=== PATIENT | male | born 1955 | race Caucasian/White ===

== ENCOUNTER 2019-04-14 13:22 | Inpatient (IN) ==
[~2019-04-14 13:22] MED LIST: AMIODARONE 360MG / 200ML D5W IV ONE; RAPID SEQUENCE INDUCTION BAG ONE
[2019-04-14] MEDS ORDERED: SODIUM CHLORIDE 0.9% 500 ML IV SCH (13:30)
[2019-04-14] MEDS ORDERED: AMIODARONE / D5W 360 MG/200 ML BAG IV SCH ×2 (13:30→17:08)
[2019-04-14 13:46] LABS: Basophils # (auto) 0.04 K/uL (0-0.2); Basophils % (auto) 0.4 %; Eosinophils # (auto) 0.11 K/uL (0-0.5); Hematocrit (blood only) 44.6 % (42-52); Hemoglobin 15.5 g/dL (14.0-18.0); Immature Granulocytes # (auto) 0.18 K/uL (0.00-0.02); Immature Granulocytes % (auto) 1.6 %; Lymphocytes # (auto) 2.47 K/uL (1.2-3.4); Lymphocytes % (auto) 21.8 %; Mean Corpuscular Hemoglobin 30.6 pg (25-34); Mean Corpuscular Hgb Conc 34.8 g/dL (32-36); Mean Platelet Volume 10.2 fL (7.4-10.4); Monocytes # (auto) 0.72 K/uL (0.11-0.59); Monocytes % (auto) 6.4 %; Neutrophils # (auto) 7.81 K/uL (1.4-6.5); Neutrophils % (auto) 68.8 %; Platelet Count 193 K/uL (130-400); RDW Coefficient of Variation 13.7 % (11.5-14.5); RDW Standard Deviation 44.2 fL (36.4-46.3); Red Blood Count 5.07 M/uL (4.7-6.1); White Blood Count 11.33 K/uL (4.8-10.8)
--- NOTE | 2019-04-14 13:48 | Emergency Department Note ---
Entered by Eva Avila acting as a scribe for Levon Villarreal DO History of Present Illness General Chief complaint: Cardiac Arrest/CPR Source: patient History of Present Illness Provider complaint: Cardiac Arrest Onset (ago): hour(s) 1 Location: chest Radiation: non-radiation Relieved By: + none Associated symptoms: + chest pain The patient is a 63 year old male who presents to the Emergency Room with complaints of cardiac arrest that began about 1 hour ago. EMS states the patient collapsed at the [facility] and was found face down. According to EMS the patient w as given 8 minutes of CPR and shocked 4 times by an AED. The patient told EMS that he is experiencing chest pain that does not radiate anywhere else on his body and is not relieved by anything specific. Home Medications Home Medications Medication Instructions Recorded Confirmed Type No Known Home Medications 04/14/19 04/14/19 History Allergies Allergy/AdvReac Type Severity Reaction Status Date / Time penicillin V Allergy Unknown Unverified 04/14/19 14:22 Past Med/Surg History Medical History No pertinent past medical history Family History Other No pertinent family history in first degree relatives Social History Preferred Language: Portuguese Feels Safe at Home: Yes Smoking Status: Former smoker Review of Systems See HPI for pertinent positives & negatives. and A total of 10 systems reviewed and were otherwise negative Physical Exam Vital Signs Vital Signs - 24 hr 04/14/19 13:26 04/14/19 13:27 04/14/19 13:30 Sepsis Recent Fever Within 48 Hours No Sepsis Action Taken by Nursing No Action Required Oxygen Flow Rate - Titration Pulse Rate 105 H 105 H 102 H Pulse Rate from SpO2 Sensor 98 H 101 H Pulse Rhythm Regular Pulse Strength Normal Respiratory Rate 30 H Respiratory Effort / Characteristics Non-Labored Respiratory Depth Normal Respiratory Pattern Regular Blood Pressure 146/94 H 146/94 H Blood Pressure Mean 111 111 Blood Pressure Position Lying Pulse Oximetry 94 94 95 Oxygen Delivery Method Non-rebreather Oxygen Flow Rate 10 Fraction of Inspired Oxygen 04/14/19 13:35 04/14/19 13:40 04/14/19 13:45 Sepsis Recent Fever Within 48 Hours Sepsis Action Taken by Nursing Oxygen Flow Rate - Titration Pulse Rate 104 H 102 H 102 H Pulse Rate from SpO2 Sensor 104 H 104 H Pulse Rhythm Pulse Strength Respiratory Rate Respiratory Effort / Characteristics Respiratory Depth Respiratory Pattern Blood Pressure Blood Pressure Mean Blood Pressure Position Pulse Oximetry 96 94 Oxygen Delivery Method Oxygen Flow Rate Fraction of Inspired Oxygen 04/14/19 14:14 04/14/19 14:15 04/14/19 14:20 Sepsis Recent Fever Within 48 Hours Sepsis Action Taken by Nursing Oxygen Flow Rate - Titration Pulse Rate 95 H 95 H 98 H Pulse Rate from SpO2 Sensor 98 H Pulse Rhythm Pulse Strength Respiratory Rate Respiratory Effort / Characteristics Respiratory Depth Respiratory Pattern Blood Pressure Blood Pressure Mean Blood Pressure Position Pulse Oximetry 92 Oxygen Delivery Method Oxygen Flow Rate Fraction of Inspired Oxygen 04/14/19 14:25 04/14/19 14:29 Sepsis Recent Fever Within 48 Hours Sepsis Action Taken by Nursing Oxygen Flow Rate - Titration 4 Pulse Rate 98 H Pulse Rate from SpO2 Sensor 98 H Pulse Rhythm Pulse Strength Respiratory Rate Respiratory Effort / Characteristics Respiratory Depth Respiratory Pattern Blood Pressure Blood Pressure Mean Blood Pressure Position Pulse Oximetry 92 Oxygen Delivery Method Nasal Cannula Oxygen Flow Rate 2 Fraction of Inspired Oxygen 92 CONSTITUTIONAL/VITAL SIGNS: Reviewed / noted above. GENERAL: Non-toxic in appearance. INTEGUMENTARY: Warm, dry, and Bruce. HEAD: Normocephalic. EYES: without scleral icterus or trauma. ENT/OROPHARYNX: Blood in bilateral nares. Mild swelling in anterior face. LYMPHADENOPATHY/NECK: Is supple without lymphadenopathy or meningismus. RESPIRATORY: Lungs clear and equal. CARDIOVASCULAR: Regular rate and rhythm. CHEST: Redness on anterior chest wall from CPR. GI/ABDOMEN: Soft and nontender. No organomegaly or pulsatile mass. No rebound or guarding. Normal bowel sounds. EXTREMITIES: Warm and well perfused. BACK: No CVA tenderness. NEUROLOGICAL: Intact without focal deficits. PSYCHIATRIC: normal affect. MUSCULOSKELETAL: Normally developed with good muscle tone. Course 1322: Past medical records reviewed. The patient was evaluated in room B01. A complete history and physical exam was performed. 1511: I spoke with Dr. Gorman- Hospitalist about the patient's case and he will accept the patient for further evaluation. Administered Medications Amiodarone HCl/Dextrose (Nexterone / D5w) 360 mg in 200 mls @ 33.333 mls/hr IV .Q6H MAITE Stop: 04/14/19 19:29 Last Admin: 04/14/19 13:35 Dose: 1 mg/min, 33.3 mls/hr Documented by: [id number] Cosigned by: [id number] Ioversol (Optiray 320 125ml) 119 ml IV ONCE PRN PRN Reason: Interaction Checking Stop: 04/18/19 14:15 Last Admin: 04/14/19 14:16 Dose: 119 ml Documented by: [id number] Discontinued Medications Sodium Chloride (Nss) 500 mls @ 999 mls/hr IV .Q31M MAITE Stop: 04/14/19 14:00 Last Infusion: 04/14/19 14:27 Dose: 0 mls/hr Documented by: [id number] Admin: 04/14/19 13:35 Dose: 999 mls/hr Documented by: [id number] Medical Decision Making Differential Diagnosis Differential diagnosis: Etiologies such as cardiac ischemia, cardiac tamponade, dysrhythmia, aortic dissection, pulmonary embolism, trauma, tension pneumothorax, acute respiratory failure, electrolyte abnormality, acidosis, toxic ingestion, hypothermia, hypovolemia, intracranial event, as well as others were entertained.. Medical Records Attestation: I reviewed the patient's medical records. Home Medications Current Medication List: was personally reviewed by me Laboratory Data Attestation: I reviewed the patient's lab results. Result diagrams: 04/14/19 13:35 04/14/19 13:35 Lab Results 04/14/19 04/14/19 04/14/19 Range/Units 13:35 13:35 13:35 WBC 11.33 H (4.8-10.8) K/uL RBC 5.07 (4.7-6.1) M/uL Hgb 15.5 (14.0-18.0) g/dL POC Hgb (14.0-18.0) g/dl Hct 44.6 (42-52) % POC Hct (42-52) % MCV 88.0 (80-100) fL MCH 30.6 (25-34) pg MCHC 34.8 (32-36) g/dL RDW Std Deviation 44.2 (36.4-46.3) fL RDW Coeff of Valentina 13.7 (11.5-14.5) % Plt Count 193 (130-400) K/uL MPV 10.2 (7.4-10.4) fL Immature Gran % (Auto) 1.6 % Neut % (Auto) 68.8 % Lymph % (Auto) 21.8 % [place] % (Auto) 6.4 % Eos % (Auto) 1.0 % Baso % (Auto) 0.4 % Immature Gran # (Auto) 0.18 H (0.00-0.02) K/uL Neut # (Auto) 7.81 H (1.4-6.5) K/uL Lymph # (Auto) 2.47 (1.2-3.4) K/uL [place] # (Auto) 0.72 H (0.11-0.59) K/uL Eos # (Auto) 0.11 (0-0.5) K/uL Baso # (Auto) 0.04 (0-0.2) K/uL PT 10.6 (9.0-12.0) Seconds INR 1.0 (0.9-1.1) APTT 23.9 (21.0-31.0) Seconds PTT Ratio 0.9 POC Sodium (135-144) mEq/L Sodium 138 (136-145) mmol/L POC Potassium (3.3-5.0) mEq/L Potassium 3.5 (3.5-5.1) mmol/L POC Chloride (101-112) mEq/L Chloride 106 (98-107) mmol/L Carbon Dioxide 20 L (21-32) mmol/L POC Total CO2 (24-31) mEq/l Anion Gap 12.0 H (3-11) POC Anion Gap (16-25) mmol/L POC BUN (7-18) mg/dl BUN 9 (7-18) mg/dl Creatinine 1.14 (0.6-1.4) mg/dl POC Creatinine (0.6-1.3) mg/dl Est Cr Clr Drug Dosing 76.9 ml/min Est GFR ( Amer) 78.9 Est GFR (Non-Af Amer) 68.1 BUN/Creatinine Ratio 8.0 L (10-20) Glucose 149 H (70-99) mg/dl POC Glucose (other) (70-99) mg/dl Lactate (0.4-2.0) mmol/L Calcium 9.0 (8.5-10.1) mg/dl POC Ioniz Calcium Linda (1.12-1.32) mmol/l Total Bilirubin 0.4 (0.2-1) mg/dl AST 126 H (15-37) U/L ALT 137 H (12-78) U/L Alkaline Phosphatase 62 (45-117) U/L Total Creatine Kinase 308 (39-308) U/L CK-MB (CK-2) 6.0 H (0.5-3.6) ng/ml CK/CKMB % Calc 1.9 (0-3.0) POC Troponin I (0-0.045) ng/ml Troponin I 0.166 H* (0-0.045) ng/ml Total Protein 6.6 (6.4-8.2) gm/dl Albumin 3.4 (3.4-5.0) gm/dl Globulin 3.2 (2.5-4.0) gm/dl Albumin/Globulin Ratio 1.1 (0.9-2) Lipase 201 (73-393) U/L Specimen Hemolysis 04/14/19 04/14/19 04/14/19 Range/Units 13:35 13:37 13:40 WBC (4.8-10.8) K/uL RBC (4.7-6.1) M/uL Hgb (14.0-18.0) g/dL POC Hgb 15.3 (14.0-18.0) g/dl Hct (42-52) % POC Hct 45 (42-52) % MCV (80-100) fL MCH (25-34) pg MCHC (32-36) g/dL RDW Std Deviation (36.4-46.3) fL RDW Coeff of Valentina (11.5-14.5) % Plt Count (130-400) K/uL MPV (7.4-10.4) fL Immature Gran % (Auto) % Neut % (Auto) % Lymph % (Auto) % [place] % (Auto) % Eos % (Auto) % Baso % (Auto) % Immature Gran # (Auto) (0.00-0.02) K/uL Neut # (Auto) (1.4-6.5) K/uL Lymph # (Auto) (1.2-3.4) K/uL [place] # (Auto) (0.11-0.59) K/uL Eos # (Auto) (0-0.5) K/uL Baso # (Auto) (0-0.2) K/uL PT (9.0-12.0) Seconds INR (0.9-1.1) APTT (21.0-31.0) Seconds PTT Ratio POC Sodium 138 (135-144) mEq/L Sodium (136-145) mmol/L POC Potassium 3.6 (3.3-5.0) mEq/L Potassium (3.5-5.1) mmol/L POC Chloride 103 (101-112) mEq/L Chloride (98-107) mmol/L Carbon Dioxide (21-32) mmol/L POC Total CO2 23 L (24-31) mEq/l Anion Gap (3-11) POC Anion Gap 16.0 (16-25) mmol/L POC BUN 8 (7-18) mg/dl BUN (7-18) mg/dl Creatinine (0.6-1.4) mg/dl POC Creatinine 1.0 (0.6-1.3) mg/dl Est Cr Clr Drug Dosing ml/min Est GFR ( Amer) Est GFR (Non-Af Amer) BUN/Creatinine Ratio (10-20) Glucose (70-99) mg/dl POC Glucose (other) 151 H (70-99) mg/dl Lactate 4.4 H* (0.4-2.0) mmol/L Calcium (8.5-10.1) mg/dl POC Ioniz Calcium Linda 1.19 (1.12-1.32) mmol/l Total Bilirubin (0.2-1) mg/dl AST (15-37) U/L ALT (12-78) U/L Alkaline Phosphatase (45-117) U/L Total Creatine Kinase (39-308) U/L CK-MB (CK-2) (0.5-3.6) ng/ml CK/CKMB % Calc (0-3.0) POC Troponin I 0.09 H (0-0.045) ng/ml Troponin I (0-0.045) ng/ml Total Protein (6.4-8.2) gm/dl Albumin (3.4-5.0) gm/dl Globulin (2.5-4.0) gm/dl Albumin/Globulin Ratio (0.9-2) Lipase (73-393) U/L Specimen Hemolysis Imaging Data Radiologist's Impression: Radiology results as stated below per my review and the radiologist's interpretation: XR chest 1V portable HISTORY: Atypical Chest Pain COMPARISON: Chest CTA 04/14/2019. FINDINGS: Diffuse interstitial and vascular thickening with a right perihilar airspace opacity. This likely represents moderate asymmetric pulmonary edema. The heart is enlarged. Suspect a trace left pleural effusion. No pneumothorax. Bilateral anterior rib fractures are better appreciated on the same day chest CT. IMPRESSION: 1. Cardiomegaly with moderate asymmetric pulmonary edema. 2. Bilateral anterior rib fractures are better appreciated on the same day chest CT. No pneumothorax. Electronically signed by: Valentín Olivares M.D. 04/14/2019 2:54 PM CHEST CTA for PULMONARY ARTERIES CT DOSE: 583.72 mGycm HISTORY: Fall. Status post cardiac arrest. TECHNIQUE: Multiaxial CT images of the chest were performed following the intravenous administration of contrast to evaluate the pulmonary arteries. Maximal intensity projection images were also obtained. A dose lowering technique was utilized adhering to the principles of ALARA. COMPARISON STUDY: None. FINDINGS: Normal caliber thoracic aorta with no evidence for dissection. The heart is normal in size. No pericardial effusion. Trace left pleural effusion. Mild motion artifact within the segmental and subsegmental pulmonary arteries resulting in suboptimal evaluation. However, no definite filling defects to suggest pulmonary embolus. The visualized liver, spleen, and adrenal glands are unremarkable. No mediastinal or hilar lymphadenopathy. Normal esophagus. No pneumothorax. The central airways are patent. Right greater than left interlobular septal thickening. There are also patchy airspace opacities within the right upper lobe posteriorly and bilateral lower lobes posteriorly. This is nonspecific but favors moderate asymmetric pulmonary edema. A superimposed pneumonia cannot be excluded. Multiple nondisplaced bilateral anterior rib fractures. This is likely due to resuscitation efforts. IMPRESSION: 1. No evidence for pulmonary embolus. 2. Moderate asymmetric pulmonary edema. A superimposed pneumonia cannot be excluded but is considered less likely. 3. Trace left pleural effusion. 4. Nondisplaced bilateral anterior rib fractures likely secondary to resuscitation efforts. No pneumothorax. Electronically signed by: Valentín Olivares M.D. 04/14/2019 2:[address] DOSE: 494.89 mGycm HISTORY: trauma TECHNIQUE: Multiaxial CT images of the cervical spine were performed and reformatted in the sagittal and coronal plane without the use of contrast. A dose lowering technique was utilized adhering to the principles of ALARA. COMPARISON: None. FINDINGS: No fractures. No subluxation. Prevertebral soft tissues and the C1-C2 interval are intact. No pneumothorax. Straightening of the cervical spine. Mild disc space narrowing within the lower cervical spine. Patchy airspace opacities and interlobular septal thickening within the lung apices favors pulmonary edema. IMPRESSION: No fractures within the cervical spine. Abnormality within the lung apices favors pulmonary edema. Electronically signed by: Valentín Olivares M.D. 04/14/2019 2:[address] head/brain wo con CLINICAL HISTORY: Head pain status post trauma. Cardiac arrest. COMPARISON STUDY: No previous studies for comparison. TECHNIQUE: Axial CT of the brain is performed from the vertex to the skull b ase. IV contrast was not administered for this examination. A dose lowering technique was utilized adhering to the principles of ALARA. CT DOSE: 1553.72 mGycm FINDINGS: No intra or extra-axial mass lesions are visualized. There is no CT evidence of acute cortical infarction. There is no evidence of midline shift. There is no acute hemorrhage. No calvarial fractures are visualized. Increased density at the level of the pontomedullary junction as visualized on image #8, likely is secondary to artifact. No corresponding abnormality is visualized on the CT the cervical spine performed the same day There are patchy minor matter hypodensities likely on a small vessel basis. There is no evidence of pathologic ventricular dilatation. There is no evidence of acute sinusitis IMPRESSION: 1. No evidence of acute intracranial injury. Electronically signed by: Davon Sow M.D. 04/14/2019 2:[address] facial bones wo con CLINICAL HISTORY: 63 years-old Male presenting with trauma. TECHNIQUE: Multidetector CT of the face was performed without the use of intravenous contrast. IV contrast: None. One or more dose lowering techniques were used consistent with the principles of ALARA (as low as reasonably achievable), including automatic exposure control, mA or kV adjustment to individual patient size, and/or use of iterative reconstruction. COMPARISON: None. CT DOSE (mGy.cm): The estimated cumulative dose is 1066.28 mGycm. FINDINGS: Biophysics Teacher topogram: Unremarkable. Motion artifact mildly degrades image quality is mildly limiting diagnostic sensitivity the exam. Layering fluid in the left sphenoid sinus. Fluid in the right mastoid air cells and minimally on the left. The skull base is intact. Zygomatic processes intact. Temporal mandibular joints and mandible intact. Dental caries suggested. The teeth are otherwise intact. Chronic deviation of the bony nasal septum to the right. Nasal bones are grossly intact. Upper cervical spine intact. Superficial soft tissues of the face do not demonstrate focal infiltration or soft tissue swelling. Age-related parenchymal atrophy of the brain. Orbits intact. Orbital floors intact. IMPRESSION: No acute osseous injury of the face. Electronically signed by: Akash Medina M.D. 04/14/2019 2:29 PM ECG Data Attestation: I personally reviewed and interpreted this ECG as follows: Indication: other (Cardiac Arrest) Rate (beats per minute): 105 Rhythm: sinus tachycardia Findings: + ST depression (Inferior); no PAC, no PVC and no ST elevation Blood Pressure Blood Pressure Findings: Elevated blood pressure Blood Pressure Disposition: further management by hospitalist COURTNEY Dominguez This is a 63-year-old male prisoner who presents to the ED with a chief complaint of cardiac arrest. The patient, per EMS had an episode of cardiac arrest. He was found down in his cell. He was facedown on the floor. The patient had CPR performed by staff at the [facility]. AED was applied and shocked him 4 times prior to EMS arrival. Upon EMS arrival, the patient was awake and had a pulse he was talking. The patient was transported here by EMS. He was given oxygen. He was also given 150 mg of IV amiodarone. The patient complains of some chest discomfort possibly related to the CPR that took place. His chest wall is red. The patient also has some bleeding in the facial area and dried blood in the nares. He states that he feels a little congested. The patient has no other complaints. His exam reveals no neuro deficits. Other than the chest wall injury from CPR and the facial injury from his likely fall, there is no other findings to suggest other trauma. His initial twelve-lead EKG shows a sinus tach at a rate of [address] depressions and T wave inversions in the inferior leads. No ST elevations or ectopy. A CT scan of the head, face and cervical spine were negative for acute trauma. CT scan of the chest did not show PE. There was evidence of asymmetric pulmonary edema. The patient was noted to have bilateral nondisplaced anterior rib fractures likely related to CPR. A second EKG was performed and reveals nonspecific ST changes in the inferior leads otherwise a normal sinus rhythm without concerning changes. AST and ALT were mildly elevated. Lactic acid level was 4.4. Troponin was 0.166. Lipase was negative. The patient was given IV amiodarone by EMS 150 mg bolus. He was also given amiodarone drip here. The patient was given IV Lasix 40 mg and 2 g of IV magnesium. I spoke with Dr. Anthony the hospitalist. I also spoke with the communications representative. The patient will be admitted to the hospital. Impression & Plan Cardiac arrest, Contusion of face, Fracture, ribs, Pulmonary edema Critical Care Time Critical Care Time: Yes Total Critical Care Time: 55 I have personally spent 55 minutes of critical care time in the direct manage ment of this patient. This includes bedside care, interpretation of diagnostic studies, and testing, discussion with consultants, patient, and family members, and other required patient management activities. This 55 minutes is in excess of all separately billable procedures. The scribe's documentation has been prepared under my direction and personally reviewed by me in its entirety. I confirm that the note above accurately reflects all work, treatment, procedures, and medical decision making performed by me.
[2019-04-14 13:52] LABS: iSTAT Hemoglobin 15.3 g/dl (14.0-18.0); iSTAT Ionized Calcium 1.19 mmol/l (1.12-1.32); iSTAT Potassium 3.6 mEq/L (3.3-5.0)
[2019-04-14 14:01] LABS: Partial Thromboplastin Ratio 0.9; Partial Thromboplastin Time 23.9 Seconds (21.0-31.0); Prothrombin Time 10.6 Seconds (9.0-12.0)
[2019-04-14 14:16] LABS: Albumin Globulin Ratio 1.1 (0.9-2); Albumin Level 3.4 gm/dl (3.4-5.0); Bilirubin,Total 0.4 mg/dl (0.2-1); Creatinine Clr Calc Pharmacy 76.9 ml/min; Est GFR (African American) 78.9; Est GFR (Non-African American) 68.1; Globulin 3.2 gm/dl (2.5-4.0); Potassium 3.5 mmol/L (3.5-5.1); Total Protein 6.6 gm/dl (6.4-8.2); Troponin I 0.166 ng/ml (0-0.045)
[2019-04-14] MEDS ORDERED: OPTIRAY 320 125ml IV PRN (14:16)
--- NOTE | 2019-04-14 14:26 | CT Scan Report ---
CT head/brain wo con CLINICAL HISTORY: Head pain status post trauma. Cardiac arrest. COMPARISON STUDY: No previous studies for comparison. TECHNIQUE: Axial CT of the brain is performed from the vertex to the skull base. IV contrast was not administered for this examination. A dose lowering technique was utilized adhering to the principles of ALARA. CT DOSE: 1553.72 mGycm FINDINGS: No intra or extra-axial mass lesions are visualized. There is no CT evidence of acute cortical infarc tion. There is no evidence of midline shift. There is no acute hemorrhage. No calvarial fractures ar e visualized. Increased density at the level of the pontomedullary junction as visualized on image #8 , likely is secondary to artifact. No corresponding abnormality is visualized on the CT the cervical spine performed the same day There are patchy minor matter hypodensities likely on a small vessel basis. There is no evidence of pathologic ventricular dilatation. There is no evidence of acute sinusitis IMPRESSION: 1. No evidence of acute intracranial injury. Electronically signed by: Davon Sow M.D. 04/14/2019 2:24 PM
--- NOTE | 2019-04-14 14:29 | CT Scan Report ---
CERVICAL SPINE CT CT DOSE: 494.89 mGycm HISTORY: trauma TECHNIQUE: Multiaxial CT images of the cervical spine were performed and reformatted in the sagittal and coronal plane without the use of contrast. A dose lowering technique was utilized adhering to th e principles of ALARA. COMPARISON: None. FINDINGS: No fractures. No subluxation. Prevertebral soft tissues and the C1-C2 interval are intact. No pneumothorax. Straightening of the cervical spine. Mild disc space narrowing within the lower cerv ical spine. Patchy airspace opacities and interlobular septal thickening within the lung apices favor s pulmonary edema. IMPRESSION: No fractures within the cervical spine. Abnormality within the lung apices favors pulmonary edema. Electronically signed by: Valentín Olivares M.D. 04/14/2019 2:28 PM
--- NOTE | 2019-04-14 14:31 | CT Scan Report ---
CT facial bones wo con CLINICAL HISTORY: 63 years-old Male presenting with trauma. TECHNIQUE: Multidetector CT of the face was performed without the use of intravenous contrast. IV con trast: None. One or more dose lowering techniques were used consistent with the principles of ALARA ( as low as reasonably achievable), including automatic exposure control, mA or kV adjustment to indivi dual patient size, and/or use of iterative reconstruction. COMPARISON: None. CT DOSE (mGy.cm): The estimated cumulative dose is 1066.28 mGycm. FINDINGS: Manager Gallery topogram: Unremarkable. Motion artifact mildly degrades image quality is mildly limiting diagnostic sensitivity the exam. Lay ering fluid in the left sphenoid sinus. Fluid in the right mastoid air cells and minimally on the lef t. The skull base is intact. Zygomatic processes intact. Temporal mandibular joints and mandible inta ct. Dental caries suggested. The teeth are otherwise intact. Chronic deviation of the bony nasal sept um to the right. Nasal bones are grossly intact. Upper cervical spine intact. Superficial soft tissue s of the face do not demonstrate focal infiltration or soft tissue swelling. Age-related parenchymal atrophy of the brain. Orbits intact. Orbital floors intact. IMPRESSION: No acute osseous injury of the face. Electronically signed by: Akash Medina M.D. 04/14/2019 2:29 PM
--- NOTE | 2019-04-14 14:43 | CT Scan Report ---
CHEST CTA for PULMONARY ARTERIES CT DOSE: 583.72 mGycm HISTORY: Fall. Status post cardiac arrest. TECHNIQUE: Multiaxial CT images of the chest were performed following the intravenous administration of contrast to evaluate the pulmonary arteries. Maximal intensity projection images were also obtaine d. A dose lowering technique was utilized adhering to the principles of ALARA. COMPARISON STUDY: None. FINDINGS: Normal caliber thoracic aorta with no evidence for dissection. The heart is normal in size. No pericardial effusion. Trace left pleural effusion. Mild motion artifact within the segmental and subsegmental pulmonary arteries resulting in suboptimal evaluation. However, no definite filling defe cts to suggest pulmonary embolus. The visualized liver, spleen, and adrenal glands are unremarkable. No mediastinal or hilar lymphadenopathy. Normal esophagus. No pneumothorax. The central airways are p atent. Right greater than left interlobular septal thickening. There are also patchy airspace opaciti es within the right upper lobe posteriorly and bilateral lower lobes posteriorly. This is nonspecific but favors moderate asymmetric pulmonary edema. A superimposed pneumonia cannot be excluded. Multipl e nondisplaced bilateral anterior rib fractures. This is likely due to resuscitation efforts. IMPRESSION: 1. No evidence for pulmonary embolus. 2. Moderate asymmetric pulmonary edema. A superimposed pneumonia cannot be excluded but is considered less likely. 3. Trace left pleural effusion. 4. Nondisplaced bilateral anterior rib fractures likely secondary to resuscitation efforts. No pneumo thorax. Electronically signed by: Valentín Olivares M.D. 04/14/2019 2:42 PM
[2019-04-14] MEDS ORDERED: FUROSEMIDE 40 MG/4 ML VIAL IV STA (14:45)
--- NOTE | 2019-04-14 14:56 | XRay Report ---
XR chest 1V portable HISTORY: Atypical Chest Pain COMPARISON: Chest CTA 04/14/2019. FINDINGS: Diffuse interstitial and vascular thickening with a right perihilar airspace opacity. This likely represents moderate asymmetric pulmonary edema. The heart is enlarged. Suspect a trace left pl eural effusion. No pneumothorax. Bilateral anterior rib fractures are better appreciated on the same day chest CT. IMPRESSION: 1. Cardiomegaly with moderate asymmetric pulmonary edema. 2. Bilateral anterior rib fractures are better appreciated on the same day chest CT. No pneumothorax. Electronically signed by: Valentín Olivares M.D. 04/14/2019 2:54 PM
[2019-04-14] MEDS: MAGNESIUM SULFATE / D5W 1 GM/100 ML BAG IV SCH ×2 (15:38→17:43)
[2019-04-14] MEDS ORDERED: POTASSIUM CHLORIDE 20 MEQ TABCR PO STA (15:42)
[2019-04-14 15:50] LABS: Magnesium 2.1 mg/dl (1.8-2.4)
[2019-04-14 15:55] LABS: Potassium 3.7 mmol/L (3.5-5.1)
--- NOTE | 2019-04-14 16:06 | Critical Care Consultation ---
Date of Consultation April 14, 2019 Assessment & Plan (1) Cardiac arrest: --Status post cardiac arrest Patient had to be shocked 4 times by ED along with CPR. Patient was alert and talking by the time EMS reached the spot. Likely represent arrhythmia. Patient's QTC is prolonged at 510. Patient was given bolus amiodarone 150 mg followed by amiodarone drip in the ER. We will continue with amiodarone drip for 24 hours. Troponin mildly elevated. We will start the patient on ACS protocol. Cardiology will be consulted. Keep potassium level greater than 4, magnesium greater than 2, phosphorus greater than 3. Monitor for any arrhythmias. Follow-up 2D echo. Serial EKGs. -- HAGMA Delta-delta: Less than 1 Likely sec to metabolic acidosis secondary lactic acidosis, non-anion gap metabo lic acidosis will order urine lites. Monitor --Bilateral upper lobe infiltrate more on the right side Differential includes aspiration with pulmonary edema given the patient had cardiac arrest Follow-up septic work-up, give 1 dose of antibiotics Monitor --Morbid obesity with probable ADAN Needs outpatient sleep study No CPAP given the patient has facial trauma --DVT prophylaxis: Heparin (2) Fracture, ribs: Pain management. Present on Admission?: Yes (3) Contusion of face: Present on Admission?: Yes History of Present Illness Reason for Consultation: Status post cardiac arrest. History of Present Illness 63-year-old male with no significant past medical history is brought in from shelter as patient had cardiac arrest while he was pushing a cart. Patient was given CPR and was shocked 4 times by AED. By the time EMS reached the p atient patient was awake and alert and talking. At the time of examination patient was awake and alert only complaint he had was chest pain which was reproducible on palpation. Patient does not recall anything prior to the episode of cardiac arrest. Patient denies any chest palpitation, no dizziness, no diaphoresis, no headache, no nausea, no vomiting. Patient denied any fever or chills. Patient denies any dysuria or hematuria or hematochezia. Patient denies taking anything unusual prior to the episode. Social history: Greater than [id number] smoking history, not smoking recently since he is incarcerated, social alcohol, denies any use of any illicit drugs Allergies Allergy/AdvReac Type Severity Reaction Status Date / Time penicillin V Allergy Unknown Unverified 04/14/19 14:22 Home Medications Home Medications Medication Instructions Recorded Confirmed Type No Known Home Medications 04/14/19 04/14/19 History Patient History Medical History No pertinent past medical history Family History Other No pertinent family history in first degree relatives Social History Preferred Language: Belarusian Communication Ability: Effective Beliefs That Will Affect Care: None Current Living Situation: Other Feels Safe at Home: Yes Smoking Status: Unknown if ever smoked Hx Alcohol Use: No Hx Substance Use: No Review of Systems Review of Systems: All systems reviewed & are unremarkable except as noted in HPI & below Physical Exam Physical Exam: Constitutional: Mild distress secondary to reproducible chest pain HEENT: EOMI, PERRLA, anicteric, bruising around the nose appreciated. Dried blood appreciated around the mouth. Respiratory system: Decreased air entry bilaterally, no wheeze, no rhonchi, no crackles CVS: S1-S2 positive, no murmurs or gallops Abdomen: Soft, nontender, nondistended, positive bowel sounds x4, obese Extremities: +2 pulses bilaterally radialis/ dorsalis pedis, +2 edema, no cyanosis Neuro: Awake alert oriented x3 Psych: Normal mood and affect G/U: No Flores Musculoskeletal: no cyanosis or clubbing, extremities motor strength 5/5 Lymphatic: no cervical or axillary lymphadenopathy Results & Data Vital Signs (Past 12 Hours) Vital Signs Pulse Resp BP Pulse Ox 04/14/19 15:55 90 98 04/14/19 15:50 91 H 97 04/14/19 15:46 90 119/86 97 04/14/19 15:45 89 98 04/14/19 15:40 90 97 04/14/19 15:35 90 96 04/14/19 15:30 90 96 04/14/19 15:25 91 H 97 04/14/19 15:20 93 H 96 04/14/19 15:15 92 H 97 04/14/19 15:10 94 H 96 04/14/19 15:05 95 H 96 04/14/19 15:00 94 H 95 04/14/19 14:55 96 H 95 04/14/19 14:50 97 H 92 04/14/19 14:45 96 H 96 04/14/19 14:40 96 H 95 04/14/19 14:35 95 H 95 04/14/19 14:30 97 H 93 04/14/19 14:25 98 H 92 04/14/19 14:20 98 H 92 04/14/19 14:15 95 H 04/14/19 14:14 95 H 04/14/19 13:45 102 H 04/14/19 13:40 102 H 94 04/14/19 13:35 104 H 96 04/14/19 13:30 102 H 95 04/14/19 13:27 105 H 146/94 H 94 04/14/19 13:26 105 H 30 H 146/94 H 94 Laboratory Results Abnormal lab results 04/14/19 04/14/19 04/14/19 Range/Units 13:35 13:35 13:35 WBC 11.33 H (4.8-10.8) K/uL MPV (7.4-10.4) fL Immature Gran # (Auto) 0.18 H (0.00-0.02) K/uL Neut # (Auto) 7.81 H (1.4-6.5) K/uL Lymph # (Auto) (1.2-3.4) K/uL [place] # (Auto) 0.72 H (0.11-0.59) K/uL Carbon Dioxide 20 L (21-32) mmol/L POC Total CO2 (24-31) mEq/l Anion Gap 12.0 H (3-11) BUN/Creatinine Ratio 8.0 L (10-20) Glucose 149 H (70-99) mg/dl POC Glucose (other) (70-99) mg/dl Lactate 4.4 H* (0.4-2.0) mmol/L Phosphorus (2.5-4.9) mg/dl AST 126 H (15-37) U/L ALT 137 H (12-78) U/L CK-MB (CK-2) 6.0 H (0.5-3.6) ng/ml POC Troponin I (0-0.045) ng/ml Troponin I 0.166 H* (0-0.045) ng/ml Ur Specific Emerson (1.000-1.030) Urine Protein (Negative) Urine Blood (Negative) Urine WBC (Auto) (0-5) /hpf Urine RBC (Auto) (0-4) /hpf U Hyaline Cast (Auto) (0-5) /lpf U Epithel Cells (Auto) (0-5) /lpf 04/14/19 04/14/19 04/14/19 Range/Units 13:35 13:37 13:40 WBC (4.8-10.8) K/uL MPV (7.4-10.4) fL Immature Gran # (Auto) (0.00-0.02) K/uL Neut # (Auto) (1.4-6.5) K/uL Lymph # (Auto) (1.2-3.4) K/uL [place] # (Auto) (0.11-0.59) K/uL Carbon Dioxide (21-32) mmol/L POC Total CO2 23 L (24-31) mEq/l Anion Gap (3-11) BUN/Creatinine Ratio (10-20) Glucose (70-99) mg/dl POC Glucose (other) 151 H (70-99) mg/dl Lactate (0.4-2.0) mmol/L Phosphorus 6.0 H (2.5-4.9) mg/dl AST (15-37) U/L ALT (12-78) U/L CK-MB (CK-2) (0.5-3.6) ng/ml POC Troponin I 0.09 H (0-0.045) ng/ml Troponin I (0-0.045) ng/ml Ur Specific Emerson (1.000-1.030) Urine Protein (Negative) Urine Blood (Negative) Urine WBC (Auto) (0-5) /hpf Urine RBC (Auto) (0-4) /hpf U Hyaline Cast (Auto) (0-5) /lpf U Epithel Cells (Auto) (0-5) /lpf 04/14/19 04/14/19 Range/Units 16:20 17:39 WBC 17.94 H (4.8-10.8) K/uL MPV 10.5 H (7.4-10.4) fL Immature Gran # (Auto) 0.08 H (0.00-0.02) K/uL Neut # (Auto) 15.76 H (1.4-6.5) K/uL Lymph # (Auto) 0.75 L (1.2-3.4) K/uL [place] # (Auto) 1.33 H (0.11-0.59) K/uL Carbon Dioxide (21-32) mmol/L POC Total CO2 (24-31) mEq/l Anion Gap (3-11) BUN/Creatinine Ratio (10-20) Glucose (70-99) mg/dl POC Glucose (other) (70-99) mg/dl Lactate (0.4-2.0) mmol/L Phosphorus (2.5-4.9) mg/dl AST (15-37) U/L ALT (12-78) U/L CK-MB (CK-2) (0.5-3.6) ng/ml POC Troponin I (0-0.045) ng/ml Troponin I (0-0.045) ng/ml Ur Specific Emerson > 1.045 H (1.000-1.030) Urine Protein 1+ H (Negative) Urine Blood 1+ H (Negative) Urine WBC (Auto) 5-10 H (0-5) /hpf Urine RBC (Auto) 5-10 H (0-4) /hpf U Hyaline Cast (Auto) 5-10 H (0-5) /lpf U Epithel Cells (Auto) >30 H (0-5) /lpf 04/14/19 17:39 Diagnostic Findings EKG reviewed: Sinus rhythm, right axis deviation, QRS prolonged, ST depression appreciated globally, ST elevation in aVR. Questionable right bundle branch block CT chest personally reviewed: No signs of pulmonary embolus, there is interstitial thickening appreciated bilateral upper lobes and some alveolar filling again right upper lobe likely represents pulmonary edema from cardiac arrest. Nondisplaced rib fracture appreciated. PG Care Time/CCT Total # of Minutes Spent Total Time Spent: 50 Total Time Spent with Patient: Total time spent is greater than 50% in coordination of care (as documented) at patient's floor/unit and/or counseling patient: Critical Care Time: Yes Total Critical Care Time: 50 (1) Fracture, ribs Encounter type: initial encounter Fracture type: closed Laterality: unspecified laterality Rib fracture type: multiple ribs Qualified Code(s): S22.49XA - Multiple fractures of ribs, unspecified side, initial encounter for closed fracture (2) Contusion of face Encounter type: initial encounter Qualified Code(s): S00.83XA - Contusion of other part of head, initial encounter
--- NOTE | 2019-04-14 16:17 | History & Physical Report ---
Date of Service April 14, 2019 Assessment & Plan (1) Cardiac arrest: Admit to ICU Vital signs every 4 hours Continued amiodarone drip Strict in and out Daily weight Reassess patient ability to swallow, consider S/P if issues with swallowing. If able to swallow start heart healthy, low-sodium diet, low-fat and restrict free fluid to 1200 mils p.o. Repeat troponin every 6 hours x2 with EKGs Repeat BMP every 6 hours, magnesium and phosphorus Given potassium 40 mg p.o. x1 in the ER Plan starting Lasix for pulmonary edema BNP pending Lipid panel , A1c in a.m. TTE pending Cardiology consult placed DVT prophylaxis heparin 5000 units every 8 hours Full code Present on Admission?: Yes (2) Contusion of face: Continue supportive care Use bacitracin for the scratches Present on Admission?: Yes (3) Fracture, ribs: Occurred due to's CPR. Monitor for bleeding. Present on Admission?: Yes (4) Pulmonary edema: As the above Present on Admission?: Yes History of Present Illness Chief Complaint: Cardiac arrest Primary Care Provider: LUCRECIA Plascencia Patient is a 63 years old male without significant past medical history who presented to the emergency room status post cardiac arrest that started 1 hour ago. EMS stated that patient collapsed at the present and it was found face down. According to EMS the patient was given 8-minute of CPR that started in his [facility] cell. He was given oxygen. He was also given 150 mg of IV amiodarone. Patient has some bleeding in the facial area and dried blood in the nurse. He feels he said that he feels a little congested and on occasion he is short of breath. His initial 12-lead EKG shows a sinus tachycardia at rate of [address] segment depression and T wave inversion in the inferior leads, nonspecific ST segment elevation in lateral leads. No ST segment elevation or ectopy. And he was shocked 4 times by AED. The patient told EMS that he experiencing chest pain that does not radiate anywhere else on his body and it is not relieved by anything specific. CT of the chest is negative for PE. There there is evidence of asymmetric pulmonary edema seen on both CT and chest x-ray. Upon arrival to the emergency room patient was started on [id number] mg drip, given magnesium 2 g IV, given 1 L of normal saline, 40 mg of Lasix IV, given potassium chloride 40 mg p.o. x1. Labs are reviewed: Lactic acid is elevated to 4.4. Troponin is 0.166. WBC 11.33, hemoglobin 15.5, hematocrit 44 .6, platelets 193, PT 10.6, INR 1, APTT 23.9, sodium 138, potassium 3.7, BUN 9, creatinine 1.14, GFR 68.1, glucose 149, calcium 9, phosphorus 6, magnesium 2.1, bilirubin 0.4, AST 126, ALT 134, CK-MB 6, TSH 3.15, lipase 201. Allergies Allergy/AdvReac Type Severity Reaction Status Date / Time penicillin V Allergy Unknown Unverified 04/14/19 14:22 Home Medications Home Medications Medication Instructions Recorded Confirmed Type No Known Home Medications 04/14/19 04/14/19 History Past Med/Surg History Medical History No pertinent past medical history Family History Other No pertinent family history in first degree relatives Social History Preferred Language: Cape Verdean Feels Safe at Home: Yes Smoking Status: Former smoker Review of Systems Review of Systems: All systems reviewed & are unremarkable except as noted in HPI & below Physical Exam Constitutional: WD/WN, vitals as above well developed and + obese Eyes: PERRL, conjunctivae normal, anicteric sclerae ENMT: external ear and nose normal, oropharynx normal Neck: trachea midline, no thyromegaly Respiratory: normal respiratory effort Auscultation: + bronchovesicular breath sounds Cardiovascular: Heart Sounds: normal S1 and normal S2 Palpation: + palpable S3 Vessels: + JVD and dorsalis pedis pulses present Extremities: + pedal edema Gastrointestinal (Abdomen): normal bowel sounds, soft, nontender, no hepatosplenomegaly Musculoskeletal: no cyanosis or clubbing, extremities motor strength 5/5 Skin: Some bruises and old blood over patient's face, no deformity. Minimal swelling. Neurologic: patellar DTR's 2+ bilat, sensation intact Psychiatric: A+Ox3, euthymic affect Lymphatic: no cervical or axillary lymphadenopathy Results & Data Vital Signs (Past 12 Hours) Vital Signs Pulse Resp BP Pulse Ox 04/14/19 15:55 90 98 04/14/19 15:50 91 H 97 04/14/19 15:46 90 119/86 97 04/14/19 15:45 89 98 04/14/19 15:40 90 97 04/14/19 15:35 90 96 04/14/19 15:30 90 96 04/14/19 15:25 91 H 97 04/14/19 15:20 93 H 96 04/14/19 15:15 92 H 97 04/14/19 15:10 94 H 96 04/14/19 15:05 95 H 96 04/14/19 15:00 94 H 95 04/14/19 14:55 96 H 95 04/14/19 14:50 97 H 92 04/14/19 14:45 96 H 96 04/14/19 14:40 96 H 95 04/14/19 14:35 95 H 95 04/14/19 14:30 97 H 93 04/14/19 14:25 98 H 92 04/14/19 14:20 98 H 92 04/14/19 14:15 95 H 04/14/19 14:14 95 H 04/14/19 13:45 102 H 04/14/19 13:40 102 H 94 04/14/19 13:35 104 H 96 04/14/19 13:30 102 H 95 04/14/19 13:27 105 H 146/94 H 94 04/14/19 13:26 105 H 30 H 146/94 H 94 Code Status & VTE Plan Code Status Full code VTE Prophylaxis Plan VTE Prophylaxis will be ordered: Yes PG Care Time/CCT Total # of Minutes Spent Total Time Spent with Patient: Total time spent is greater than 50% in c oordination of care (as documented) at patient's floor/unit and/or counseling patient: (1) Contusion of face Encounter type: initial encounter Qualified Code(s): S00.83XA - Contusion of other part of head, initial encounter (2) Fracture, ribs Encounter type: initial encounter Fracture type: closed Laterality: unspecified laterality Rib fracture type: multiple ribs Qualified Code(s): S22.49XA - Multiple fractures of ribs, unspecified side, initial encounter for closed fracture (3) Pulmonary edema Chronicity: acute Qualified Code(s): J81.0 - Acute pulmonary edema
[2019-04-14 16:21] LABS: Thyroid Stimulating Hormone 3.15 uIu/ml (0.300-4.500)
[2019-04-14 16:45] LABS: Appearance Urine Clear (Clear); Bacteria Urine Automated Negative (Negative); Bilirubin Urine Negative (Negative); Blood Urine 1+ (Negative); Color Urine Yellow; Epithelial Cell Urine Auto >30 /lpf (0-5); Glucose Urine UA Negative (Negative); Ketones Urine Negative (Negative); Leukocyte Esterase Urine Negative (Negative); Nitrite Urine Negative (Negative); Protein Urine 1+ (Negative); Specific Gravity Urine > 1.045 (1.000-1.030); Urobilinogen Urine Negative (Negative); pH Urine 5.5 (4.5-7.5)
[2019-04-14 17:08] LABS: Renal Epithelial Cells Urine 0-5 /lpf (0-5)
[2019-04-14] MEDS ORDERED: ZOLPIDEM TARTRATE 5 MG TAB PO PRN (17:08)
[2019-04-14] MEDS ORDERED: NITROGLYCERIN SL 0.4 MG/TAB TAB SL PRN (17:08)
[2019-04-14] MEDS ORDERED: ACETAMINOPHEN 325 MG TAB PO PRN (17:08)
[2019-04-14] MEDS ORDERED: CLOPIDOGREL BISULFATE 75 MG TAB PO STA (17:08)
[2019-04-14] MEDS ORDERED: ONDANSETRON INJ 2 MG/ML 2 ML VIAL IV PRN (17:08)
[2019-04-14] MEDS ORDERED: POLYETHYLENE (MIRALAX) 17 GM PACK PO PRN (17:08)
[2019-04-14] MEDS: OXYCODONE/ACETAMINOPHEN 5mg/325mg TAB PO PRN ×2 (17:24→21:30)
[2019-04-14] MEDS ORDERED: DOXYCYCLINE HYCLATE 100 MG in DEXTROSE 5% 100 ML IV ONE (17:30)
[2019-04-14] MEDS: ATORVASTATIN 40 MG TAB PO SCH (17:47)
[2019-04-14] MEDS: lisinopriL 10 MG TAB PO SCH ×2 (17:48→18:28)
[2019-04-14] MEDS ORDERED: cefTRIAXone SODIUM 2,000 MG in DEXTROSE 5% 50 ML IV SCH (18:00)
[2019-04-14 18:31] LABS: Magnesium 2.4 mg/dl (1.8-2.4)
[2019-04-14 18:33] LABS: Basophils # (auto) 0.01 K/uL (0-0.2); Basophils % (auto) 0.1 %; Eosinophils # (auto) 0.01 K/uL (0-0.5); Eosinophils % (auto) 0.1 %; Hematocrit (blood only) 46.2 % (42-52); Hemoglobin 16.5 g/dL (14.0-18.0); Immature Granulocytes # (auto) 0.08 K/uL (0.00-0.02); Immature Granulocytes % (auto) 0.4 %; Lymphocytes # (auto) 0.75 K/uL (1.2-3.4); Lymphocytes % (auto) 4.2 %; Mean Corpuscular Hemoglobin 31.6 pg (25-34); Mean Corpuscular Hgb Conc 35.7 g/dL (32-36); Mean Corpuscular Volume 88.5 fL (80-100); Mean Platelet Volume 10.5 fL (7.4-10.4); Monocytes # (auto) 1.33 K/uL (0.11-0.59); Monocytes % (auto) 7.4 %; Neutrophils # (auto) 15.76 K/uL (1.4-6.5); Neutrophils % (auto) 87.8 %; Platelet Count 209 K/uL (130-400); RDW Coefficient of Variation 13.8 % (11.5-14.5); RDW Standard Deviation 44.8 fL (36.4-46.3); Red Blood Count 5.22 M/uL (4.7-6.1); White Blood Count 17.94 K/uL (4.8-10.8)
[2019-04-14 18:54] LABS: BUN Creatinine Ratio 10.6 (10-20); Calcium 8.6 mg/dl (8.5-10.1); Creatinine Clr Calc Pharmacy 87.7 ml/min; Est GFR (African American) 92.4; Est GFR (Non-African American) 79.7; Potassium 4.2 mmol/L (3.5-5.1)
[2019-04-14] MEDS ORDERED: INFLUENZA VIRUS QUAD VACCINE 0.5 ML SYR IM ONE (19:00)
[2019-04-14] MEDS ORDERED: INFLUENZA ADMINISTRATION CHARGE ONE (19:00)
[2019-04-14] MEDS: AMIODARONE / D5W 360 MG/200 ML BAG IV SCH (19:25)
[2019-04-14 19:47] LABS: Amphetamines+Metham, Urine Neg (Neg); Barbiturates, Urine Neg (Neg); Benzodiazepine, Urine Neg (Neg); Cocaine, Urine Neg (Neg); MDMA (Ecstacy), Urine Neg (Neg); Methadone, Urine Neg (Neg); Opiate, Urine Neg (Neg); Phencyclidine, Urine Neg (Neg)
[2019-04-14 19:58] LABS: Phosphorus 2.4 mg/dl (2.5-4.9); Troponin I 5.99 ng/ml (0-0.045)
[2019-04-14] MEDS ORDERED: HEPARIN SOD 5,000 UNIT/0.5 ML VIAL SQ SCH (22:00)
[2019-04-14 23:30] LABS: BUN Creatinine Ratio 10.1 (10-20); Calcium 9.3 mg/dl (8.5-10.1); Creatinine Clr Calc Pharmacy 70.2 ml/min; Est GFR (African American) 70.6; Est GFR (Non-African American) 60.9; Magnesium 2.3 mg/dl (1.8-2.4); Potassium 3.9 mmol/L (3.5-5.1)
[2019-04-14] MEDS ORDERED: GLUCAGON FOR INJ 1 MG VIAL IM PRN (23:45)
[2019-04-14] MEDS ORDERED: GLUCOSE 10 TABS/TUBE PO PRN (23:45)
[2019-04-14] MEDS ORDERED: CARBOHYDRATES FOR HYPOGLYCEMIA PO PRN (23:45)
[2019-04-14] MEDS ORDERED: DEXTROSE 50% 50 ML SYRINGE IV PRN (23:45)
[2019-04-14] MEDS ORDERED: GLUCOSE 40% GEL 15 GM TUBE PO PRN (23:45)
[2019-04-14] MEDS ORDERED: POTASSIUM PHOS 3 MMOL/1 ML INFUSION IV STA (23:48)
[2019-04-14 23:49] LABS: Phosphorus 1.2 mg/dl (2.5-4.9); Troponin I 16.9 ng/ml (0-0.045)
[2019-04-15] MEDS ORDERED: POTASSIUM PHOSPHATE 21 MMOL in SODIUM CHLORIDE 0.9% 500 ML IV ONE
[2019-04-15] MEDS ORDERED: Heparin IV Standard *NO* Bolus IV SCH (00:30)
[2019-04-15] MEDS ORDERED: HEPARIN SODIUM/DEXTROSE 25,000 UNITS/500 ML BAG IV SCH (00:30)
[2019-04-15 00:55] LABS: Hematocrit (blood only) 44.8 % (42-52); Hemoglobin 15.8 g/dL (14.0-18.0); Mean Corpuscular Hemoglobin 31.4 pg (25-34); Mean Corpuscular Volume 89.1 fL (80-100); Mean Platelet Volume 10.1 fL (7.4-10.4); Platelet Count 177 K/uL (130-400); RDW Coefficient of Variation 13.9 % (11.5-14.5); RDW Standard Deviation 45.5 fL (36.4-46.3); Red Blood Count 5.03 M/uL (4.7-6.1)
[2019-04-15 00:57] LABS: Mean Corpuscular Hgb Conc 35.3 g/dL (32-36)
[2019-04-15 01:16] LABS: Partial Thromboplastin Ratio 0.7; Partial Thromboplastin Time 20.2 Seconds (21.0-31.0); Prothrombin Time 10.3 Seconds (9.0-12.0)
[2019-04-15 05:28] LABS: Eosinophils # (auto) 0.01 K/uL (0-0.5); Eosinophils % (auto) 0.1 %; Hematocrit (blood only) 42.9 % (42-52); Hemoglobin 14.7 g/dL (14.0-18.0); Immature Granulocytes # (auto) 0.04 K/uL (0.00-0.02); Immature Granulocytes % (auto) 0.3 %; Lymphocytes # (auto) 1.13 K/uL (1.2-3.4); Lymphocytes % (auto) 9.4 %; Mean Corpuscular Hemoglobin 30.6 pg (25-34); Mean Corpuscular Hgb Conc 34.3 g/dL (32-36); Mean Corpuscular Volume 89.4 fL (80-100); Monocytes # (auto) 1.05 K/uL (0.11-0.59); Monocytes % (auto) 8.7 %; Neutrophils # (auto) 9.83 K/uL (1.4-6.5); Neutrophils % (auto) 81.5 %; Platelet Count 173 K/uL (130-400); RDW Coefficient of Variation 13.9 % (11.5-14.5); RDW Standard Deviation 45.6 fL (36.4-46.3); White Blood Count 12.06 K/uL (4.8-10.8)
[2019-04-15 06:14] LABS: Albumin Level 3.4 gm/dl (3.4-5.0); BUN Creatinine Ratio 11.6 (10-20); Bilirubin,Total 0.5 mg/dl (0.2-1); Calcium 8.8 mg/dl (8.5-10.1); Creatinine Clr Calc Pharmacy 76.3 ml/min; Est GFR (African American) 78.1; Est GFR (Non-African American) 67.4; Globulin 3.3 gm/dl (2.5-4.0); Magnesium 2.2 mg/dl (1.8-2.4); Total Protein 6.7 gm/dl (6.4-8.2); Troponin I 18.8 ng/ml (0-0.045)
[2019-04-15] MEDS: INSULIN ASPART 100 UNITS/ML 3 ML PEN SC SCH ×5 (06:16→21:02)
[2019-04-15 06:24] LABS: Potassium 4.9 mmol/L (3.5-5.1)
[2019-04-15 06:25] LABS: Phosphorus 2.6 mg/dl (2.5-4.9)
[2019-04-15 06:34] LABS: Estimated Average Glucose 120 mg/dl; Hemoglobin A1C 5.8 % (4.5-5.6)
[2019-04-15] MEDS ORDERED: POT PHOSPHATE MONOBASIC W/ SOD TAB PO ONE (07:00)
[2019-04-15] MEDS ORDERED: D5W AND 1/2NSS 1,000 ML IV SCH (07:45)
[2019-04-15] MEDS ORDERED: PERFLUTREN LIPID MICROSPHERE (DEFINITY) IV ONE (07:57)
[2019-04-15] MEDS: AMIODARONE / D5W 360 MG/200 ML BAG IV SCH ×2 (07:59→08:16)
[2019-04-15] MEDS: ASPIRIN 81 MG ECTAB PO SCH (08:00)
[2019-04-15] MEDS: ATORVASTATIN 40 MG TAB PO SCH (08:00)
--- NOTE | 2019-04-15 08:20 | XRay Report ---
XR chest 1V portable CLINICAL HISTORY: 63 years-old Male presenting with cardiac arrest. TECHNIQUE: Portable upright AP view of the chest was obtained. COMPARISON: 04/14/2019. FINDINGS: Cardiac silhouette moderately enlarged. Mild pulmonary vascular prominence significantly decreased fr om prior. Interlobular septal thickening is also significantly decreased from prior. Decreased added density of the lungs. No focal opacity. No large effusion or pneumothorax. Previous CT demonstrated r ib fractures on CT are not well appreciated by radiograph. Upper abdomen normal. IMPRESSION: 1. Cardiomegaly with resolved pulmonary edema as well as significantly decreased congestive change o r volume overload. 2. Rib fractures better appreciated by prior CT. Electronically signed by: Akash Medina M.D. 04/15/2019 8:19 AM
[2019-04-15 08:35] LABS: Partial Thromboplastin Ratio 1.7
[2019-04-15] MEDS: OXYCODONE/ACETAMINOPHEN 5mg/325mg TAB PO PRN ×2 (08:48→18:01)
[2019-04-15] MEDS: lisinopriL 10 MG TAB PO SCH (08:49)
[2019-04-15 08:52] LABS: Partial Thromboplastin Time 46.5 Seconds (21.0-31.0)
--- NOTE | 2019-04-15 10:56 | Cardiology Consultation ---
Date of Consultation April 15, 2019 Assessment & Plan (1) Cardiac arrest: Based on presentation, cardiac arrest likely due to ischemic arrhythmia such as ventricular tachycardia or ventricular fibrillation. Currently on amiodarone drip. No arrhythmia while hospitalized. Recommend cardiac catheterization. Risks and benefits were discussed with him in detail. He was made aware that CT surgery is not available at this facility. He was agreeable to proceed with cardiac catheterization. It is not urgent at this point as he is completely asymptomatic. (2) Non-ST elevation (NSTEMI) myocardial infarction: Abnormal inferolateral wall on echo. Presentation concerning for ischemic event and has climbing/elevated troponin levels. Continue aspirin 81 mg daily. He has received Plavix 75 mg last evening. Will start brilinta. Continue heparin drip. Continue ROSALEE-inhibitor. Will start low-dose beta-mariusz. No current angina/ischemic symptoms. Cardiac catheterization pending. (3) Dyslipidemia: Continue high-intensity statin therapy. Monitor transaminase levels which are elevated at baseline. Disposition: Highly complex medical issues. Cardiology will continue to follow. Patient care discussed with ICU critical care team, Dr. Ritter. Greater than 60 min critical care time spent reviewing studies, counseling patient, and coordinating care. History of Present Illness Reason for Consultation: Cardiac Arrest Requesting Physician: Dr. Gorman Attending Physician: Sam Gill MD History of Present Illness Mr. Thorpe is a 63-year-old gentleman with a history significant for dyslipidemia who presented to [facility] following [id number] cardiac arrest. He is currently incarcerated at [facility] and while walking, he had a syncopal event. He does not recall any symptoms prior to that such as chest pain or shortness of breath. This was a witnessed event and CPR was performed. An AED was used, advising a shock. He apparently underwent 4 defibrillations. He was resuscitated successfully and did not require intubation. He is currently in the ICU. He does have some chest pain following chest compressions. It is very painful to move. He denies shortness of breath, palpitations, edema, or bleeding such as melena, hematochezia, or hematuria. He has not had any other syncope in the past. He denies any near-syncope. He states that he has been diagnosed with dyslipidemia in the past but follow-up labs have been improved and he has not required treatment. He had a stress test many years ago but has not had a cardiac catheterization. His initial troponin here was slightly elevated at 0.166 but has since trended upward to 18.8 earlier this morning. Review of systems: As above. Review of systems otherwise negative/unremarkable. Family history: He has 3 older sisters and they all in 2017. He believes that they from cardiac issues and recalls 1 having P 80 requiring lower extremity stents. Social history: He quit smoking in December of 2018. He had smoked for many years up to 1.5 packs per day. No recent alcohol. No drugs. He is x1. He has 3 children, 2 daughters and 1 son. He and his son keep in touch. He formally worked in maintenance. He is accompanied today by 2 fpc guards. He resides at [facility]. Allergies Allergy/AdvReac Type Severity Reaction Status Date / Time penicillin V Allergy Unknown Unverified 04/14/19 14:22 Home Medications Home Medications Medication Instructions Recorded Confirmed Type No Known Home Medications 04/14/19 04/14/19 History Patient History Medical History Dyslipidemia Surgical History S/P cholecystectomy Family History Other No pertinent family history in first degree relatives Social History Preferred Language: Frisian Communication Ability: Effective Beliefs That Will Affect Care: None Current Living Situation: Other Feels Safe at Home: Yes Smoking Status: Unknown if ever smoked Hx Alcohol Use: No Hx Substance Use: No Physical Exam Physical Exam: Gen.: No acute distress. Alert and oriented. HEENT: Anicteric sclera. Neck: No JVD. No bruits. Normal carotid upstrokes bilaterally. Cardiac: PMI was nonpalpable. No ventricular heave. Regular. Normal S1-S2. No murmurs, rubs, or gallops. Pulmonary: Clear to auscultation bilaterally without wheezes, rales, or rhonchi. Abdomen: Soft, nontender, nondistended, with normoactive bowel sounds. No bruits noted. Extremities: 2+ radial pulses bilaterally; Parker's test ok. 2+ posterior tibialis pulses bilaterally. Trace bilateral lower extremity edema. No cyanosis. Psychiatric: Affect appears appropriate. Results & Data Vital Signs (Past 12 Hours) Vital Signs Temp Pulse Resp BP Pulse Ox 04/15/19 10:01 73 11 L 140/72 92 04/15/19 09:03 73 20 148/70 H 94 04/15/19 08:01 36.6 C 67 20 157/75 H 94 04/15/19 06:01 65 16 149/76 H 92 04/15/19 05:00 63 27 H 155/82 H 93 04/15/19 04:46 36.8 C 04/15/19 04:00 62 14 135/72 92 04/15/19 03:00 64 14 123/74 94 04/15/19 02:00 62 15 129/73 91 04/15/19 01:01 65 12 129/73 91 04/15/19 00:00 66 17 130/53 L 92 04/14/19 23:39 36.7 C 04/14/19 23:00 68 21 123/72 93 Laboratory Results Laboratory Results - last 24 hr 04/14/19 04/14/19 04/14/19 13:35 13:35 13:35 WBC 11.33 H RBC 5.07 Hgb 15.5 POC Hgb Hct 44.6 POC Hct MCV 88.0 MCH 30.6 MCHC 34.8 RDW Std Deviation 44.2 RDW Coeff of Valentina 13.7 Plt Count 193 MPV 10.2 Immature Gran % (Auto) 1.6 Neut % (Auto) 68.8 Lymph % (Auto) 21.8 [place] % (Auto) 6.4 Eos % (Auto) 1.0 Baso % (Auto) 0.4 Immature Gran # (Auto) 0.18 H Neut # (Auto) 7.81 H Lymph # (Auto) 2.47 [place] # (Auto) 0.72 H Eos # (Auto) 0.11 Baso # (Auto) 0.04 PT 10.6 INR 1.0 APTT 23.9 PTT Ratio 0.9 POC Sodium Sodium 138 POC Potassium Potassium 3.5 POC Chloride Chloride 106 Carbon Dioxide 20 L POC Total CO2 Anion Gap 12.0 H POC Anion Gap POC BUN BUN 9 Creatinine 1.14 POC Creatinine Est Cr Clr Drug Dosing 76.9 Est GFR ( Amer) 78.9 Est GFR (Non-Af Amer) 68.1 BUN/Creatinine Ratio 8.0 L Glucose 149 H POC Glucose POC Glucose (other) Estimat Average Glucose Hemoglobin A1c Lactate Calcium 9.0 POC Ioniz Calcium Linda Phosphorus Magnesium Total Bilirubin 0.4 AST 126 H ALT 137 H Alkaline Phosphatase 62 Total Creatine Kinase 308 CK-MB (CK-2) 6.0 H CK/CKMB % Calc 1.9 POC Troponin I Troponin I 0.166 H* NT-Pro-B Natriuret Pep Total Protein 6.6 Albumin 3.4 Globulin 3.2 Albumin/Globulin Ratio 1.1 Triglycerides Cholesterol LDL Cholesterol, Calc VLDL Cholesterol, Calc HDL Cholesterol Cholesterol/HDL Ratio Lipase 201 Procalcitonin TSH Specimen Hemolysis Urine Color Urine Appearance Urine pH Ur Specific [place] Urine Protein Urine Glucose (UA) Urine Ketones Urine Blood Urine Nitrite Urine Bilirubin Urine Urobilinogen Ur Leukocyte Esterase Urine WBC (Auto) Urine RBC (Auto) U Hyaline Cast (Auto) U Epithel Cells (Auto) Urine Bacteria (Auto) Ur Renal Epithelial Cell Nasal Screen MRSA (PCR) Urine Opiates Screen Ur Methadone, Qual Urine Barbiturates Ur Phencyclidine (PCP) U Amphetamin/Meth Scrn MDMA (Ecstasy) Screen U Benzodiazepines Scrn Ur Cocaine Metabolite U Marijuana (THC) Screen 04/14/19 04/14/19 04/14/19 13:35 13:35 13:37 WBC RBC Hgb POC Hgb 15.3 Hct POC Hct 45 MCV MCH MCHC RDW Std Deviation RDW Coeff of Valentina Plt Count MPV Immature Gran % (Auto) Neut % (Auto) Lymph % (Auto) [place] % (Auto) Eos % (Auto) Baso % (Auto) Immature Gran # (Auto) Neut # (Auto) Lymph # (Auto) [place] # (Auto) Eos # (Auto) Baso # (Auto) PT INR APTT PTT Ratio POC Sodium 138 Sodium POC Potassium 3.6 Potassium 3.7 POC Chloride 103 Chloride Carbon Dioxide POC Total CO2 23 L Anion Gap POC Anion Gap 16.0 POC BUN 8 BUN Creatinine POC Creatinine 1.0 Est Cr Clr Drug Dosing Est GFR ( Amer) Est GFR (Non-Af Amer) BUN/Creatinine Ratio Glucose POC Glucose POC Glucose (other) 151 H Estimat Average Glucose Hemoglobin A1c Lactate 4.4 H* Calcium POC Ioniz Calcium Linda 1.19 Phosphorus 6.0 H Magnesium 2.1 Total Bilirubin AST ALT Alkaline Phosphatase Total Creatine Kinase CK-MB (CK-2) CK/CKMB % Calc POC Troponin I Troponin I NT-Pro-B Natriuret Pep 66 Total Protein Albumin Globulin Albumin/Globulin Ratio Triglycerides Cholesterol LDL Cholesterol, Calc VLDL Cholesterol, Calc HDL Cholesterol Cholesterol/HDL Ratio Lipase Procalcitonin TSH 3.150 Specimen Hemolysis Urine Color Urine Appearance Urine pH Ur Specific [place] Urine Protein Urine Glucose (UA) Urine Ketones Urine Blood Urine Nitrite Urine Bilirubin Urine Urobilinogen Ur Leukocyte Esterase Urine WBC (Auto) Urine RBC (Auto) U Hyaline Cast (Auto) U Epithel Cells (Auto) Urine Bacteria (Auto) Ur Renal Epithelial Cell Nasal Screen MRSA (PCR) Urine Opiates Screen Ur Methadone, Qual Urine Barbiturates Ur Phencyclidine (PCP) U Amphetamin/Meth Scrn MDMA (Ecstasy) Screen U Benzodiazepines Scrn Ur Cocaine Metabolite U Marijuana (THC) Screen 04/14/19 04/14/19 04/14/19 13:40 16:20 17:39 WBC RBC Hgb POC Hgb Hct POC Hct MCV MCH MCHC RDW Std Deviation RDW Coeff of Valentina Plt Count MPV Immature Gran % (Auto) Neut % (Auto) Lymph % (Auto) [place] % (Auto) Eos % (Auto) Baso % (Auto) Immature Gran # (Auto) Neut # (Auto) Lymph # (Auto) [place] # (Auto) Eos # (Auto) Baso # (Auto) PT INR APTT PTT Ratio POC Sodium Sodium 136 POC Potassium Potassium 4.2 POC Chloride Chloride 104 Carbon Dioxide 23 POC Total CO2 Anion Gap 9.0 POC Anion Gap POC BUN BUN 11 Creatinine 1.00 POC Creatinine Est Cr Clr Drug Dosing 87.7 Est GFR ( Amer) 92.4 Est GFR (Non-Af Amer) 79.7 BUN/Creatinine Ratio 10.6 Glucose 189 H POC Glucose POC Glucose (other) Estimat Average Glucose Hemoglobin A1c Lactate Calcium 8.6 POC Ioniz Calcium Linda Phosphorus Magnesium Total Bilirubin AST ALT Alkaline Phosphatase Total Creatine Kinase CK-MB (CK-2) CK/CKMB % Calc POC Troponin I 0.09 H Troponin I NT-Pro-B Natriuret Pep Total Protein Albumin Globulin Albumin/Globulin Ratio Triglycerides Cholesterol LDL Cholesterol, Calc VLDL Cholesterol, Calc HDL Cholesterol Cholesterol/HDL Ratio Lipase Procalcitonin TSH Specimen Hemolysis Urine Color Yellow Urine Appearance Clear Urine pH 5.5 Ur Specific [place] > 1.045 H Urine Protein 1+ H Urine Glucose (UA) Negative Urine Ketones Negative Urine Blood 1+ H Urine Nitrite Negative Urine Bilirubin Negative Urine Urobilinogen Negative Ur Leukocyte Esterase Negative Urine WBC (Auto) 5-10 H Urine RBC (Auto) 5-10 H U Hyaline Cast (Auto) 5-10 H U Epithel Cells (Auto) >30 H Urine Bacteria (Auto) Negative Ur Renal Epithelial Cell 0-5 Nasal Screen MRSA (PCR) Urine Opiates Screen Ur Methadone, Qual Urine Barbiturates Ur Phencyclidine (PCP) U Amphetamin/Meth Scrn MDMA (Ecstasy) Screen U Benzodiazepines Scrn Ur Cocaine Metabolite U Marijuana (THC) Screen 04/14/19 04/14/19 04/14/19 17:39 17:39 17:39 WBC 17.94 H RBC 5.22 Hgb 16.5 POC Hgb Hct 46.2 POC Hct MCV 88.5 MCH 31.6 MCHC 35.7 RDW Std Deviation 44.8 RDW Coeff of Valentina 13.8 Plt Count 209 MPV 10.5 H Immature Gran % (Auto) 0.4 Neut % (Auto) 87.8 Lymph % (Auto) 4.2 [place] % (Auto) 7.4 Eos % (Auto) 0.1 Baso % (Auto) 0.1 Immature Gran # (Auto) 0.08 H Neut # (Auto) 15.76 H Lymph # (Auto) 0.75 L [place] # (Auto) 1.33 H Eos # (Auto) 0.01 Baso # (Auto) 0.01 PT INR APTT PTT Ratio POC Sodium Sodium POC Potassium Potassium POC Chloride Chloride Carbon Dioxide POC Total CO2 Anion Gap POC Anion Gap POC BUN BUN Creatinine POC Creatinine Est Cr Clr Drug Dosing Est GFR ( Amer) Est GFR (Non-Af Amer) BUN/Creatinine Ratio Glucose POC Glucose POC Glucose (other) Estimat Average Glucose Hemoglobin A1c Lactate Calcium POC Ioniz Calcium Linda Phosphorus 2.4 L D Magnesium 2.4 Total Bilirubin AST ALT Alkaline Phosphatase Total Creatine Kinase CK-MB (CK-2) CK/CKMB % Calc POC Troponin I Troponin I 5.990 H* NT-Pro-B Natriuret Pep 161 Total Protein Albumin Globulin Albumin/Globulin Ratio Triglycerides Cholesterol LDL Cholesterol, Calc VLDL Cholesterol, Calc HDL Cholesterol Cholesterol/HDL Ratio Lipase Procalcitonin 0.33 TSH Specimen Hemolysis Urine Color Urine Appearance Urine pH Ur Specific [place] Urine Protein Urine Glucose (UA) Urine Ketones Urine Blood Urine Nitrite Urine Bilirubin Urine Urobilinogen Ur Leukocyte Esterase Urine WBC (Auto) Urine RBC (Auto) U Hyaline Cast (Auto) U Epithel Cells (Auto) Urine Bacteria (Auto) Ur Renal Epithelial Cell Nasal Screen MRSA (PCR) Urine Opiates Screen Ur Methadone, Qual Urine Barbiturates Ur Phencyclidine (PCP) U Amphetamin/Meth Scrn MDMA (Ecstasy) Screen U Benzodiazepines Scrn Ur Cocaine Metabolite U Marijuana (THC) Screen 04/14/19 04/14/19 04/14/19 19:15 19:15 22:59 WBC RBC Hgb POC Hgb Hct POC Hct MCV MCH MCHC RDW Std Deviation RDW Coeff of Valentina Plt Count MPV Immature Gran % (Auto) Neut % (Auto) Lymph % (Auto) [place] % (Auto) Eos % (Auto) Baso % (Auto) Immature Gran # (Auto) Neut # (Auto) Lymph # (Auto) [place] # (Auto) Eos # (Auto) Baso # (Auto) PT INR APTT PTT Ratio POC Sodium Sodium 136 POC Potassium Potassium 3.9 POC Chloride Chloride 102 Carbon Dioxide 27 POC Total CO2 Anion Gap 7.0 POC Anion Gap POC BUN BUN 13 Creatinine 1.25 POC Creatinine Est Cr Clr Drug Dosing 70.2 Est GFR ( Amer) 70.6 Est GFR (Non-Af Amer) 60.9 BUN/Creatinine Ratio 10.1 Glucose 168 H POC Glucose POC Glucose (other) Estimat Average Glucose Hemoglobin A1c Lactate Calcium 9.3 POC Ioniz Calcium Linda Phosphorus 1.2 L* D Magnesium 2.3 Total Bilirubin AST ALT Alkaline Phosphatase Total Creatine Kinase CK-MB (CK-2) CK/CKMB % Calc POC Troponin I Troponin I 16.900 H* NT-Pro-B Natriuret Pep Total Protein Albumin Globulin Albumin/Globulin Ratio Triglycerides Cholesterol LDL Cholesterol, Calc VLDL Cholesterol, Calc HDL Cholesterol Cholesterol/HDL Ratio Lipase Procalcitonin TSH Specimen Hemolysis Urine Color Urine Appearance Urine pH Ur Specific [place] Urine Protein Urine Glucose (UA) Urine Ketones Urine Blood Urine Nitrite Urine Bilirubin Urine Urobilinogen Ur Leukocyte Esterase Urine WBC (Auto) Urine RBC (Auto) U Hyaline Cast (Auto) U Epithel Cells (Auto) Urine Bacteria (Auto) Ur Renal Epithelial Cell Nasal Screen MRSA (PCR) Negative Urine Opiates Screen Neg Ur Methadone, Qual Neg Urine Barbiturates Neg Ur Phencyclidine (PCP) Neg U Amphetamin/Meth Scrn Neg MDMA (Ecstasy) Screen Neg U Benzodiazepines Scrn Neg Ur Cocaine Metabolite Neg U Marijuana (THC) Screen Neg 04/14/19 04/15/19 04/15/19 23:32 00:47 00:47 WBC 12.30 H RBC 5.03 Hgb 15.8 POC Hgb Hct 44.8 POC Hct MCV 89.1 MCH 31.4 MCHC 35.3 RDW Std Deviation 45.5 RDW Coeff of Valentina 13.9 Plt Count 177 MPV 10.1 Immature Gran % (Auto) Neut % (Auto) Lymph % (Auto) [place] % (Auto) Eos % (Auto) Baso % (Auto) Immature Gran # (Auto) Neut # (Auto) Lymph # (Auto) [place] # (Auto) Eos # (Auto) Baso # (Auto) PT 10.3 INR 1.0 APTT 20.2 L PTT Ratio 0.7 POC Sodium Sodium POC Potassium Potassium POC Chloride Chloride Carbon Dioxide POC Total CO2 Anion Gap POC Anion Gap POC BUN BUN Creatinine POC Creatinine Est Cr Clr Drug Dosing Est GFR ( Amer) Est GFR (Non-Af Amer) BUN/Creatinine Ratio Glucose POC Glucose 183 H POC Glucose (other) Estimat Average Glucose Hemoglobin A1c Lactate Calcium POC Ioniz Calcium Linda Phosphorus Magnesium Total Bilirubin AST ALT Alkaline Phosphatase Total Creatine Kinase CK-MB (CK-2) CK/CKMB % Calc POC Troponin I Troponin I NT-Pro-B Natriuret Pep Total Protein Albumin Globulin Albumin/Globulin Ratio Triglycerides Cholesterol LDL Cholesterol, Calc VLDL Cholesterol, Calc HDL Cholesterol Cholesterol/HDL Ratio Lipase Procalcitonin TSH Specimen Hemolysis Urine Color Urine Appearance Urine pH Ur Specific [place] Urine Protein Urine Glucose (UA) Urine Ketones Urine Blood Urine Nitrite Urine Bilirubin Urine Urobilinogen Ur Leukocyte Esterase Urine WBC (Auto) Urine RBC (Auto) U Hyaline Cast (Auto) U Epithel Cells (Auto) Urine Bacteria (Auto) Ur Renal Epithelial Cell Nasal Screen MRSA (PCR) Urine Opiates Screen Ur Methadone, Qual Urine Barbiturates Ur Phencyclidine (PCP) U Amphetamin/Meth Scrn MDMA (Ecstasy) Screen U Benzodiazepines Scrn Ur Cocaine Metabolite U Marijuana (THC) Screen 04/15/19 04/15/19 04/15/19 05:07 05:07 05:07 WBC 12.06 H RBC 4.80 Hgb 14.7 POC Hgb Hct 42.9 POC Hct MCV 89.4 MCH 30.6 MCHC 34.3 RDW Std Deviation 45.6 RDW Coeff of Valentina 13.9 Plt Count 173 MPV 10.0 Immature Gran % (Auto) 0.3 Neut % (Auto) 81.5 Lymph % (Auto) 9.4 [place] % (Auto) 8.7 Eos % (Auto) 0.1 Baso % (Auto) 0.0 Immature Gran # (Auto) 0.04 H Neut # (Auto) 9.83 H Lymph # (Auto) 1.13 L [place] # (Auto) 1.05 H Eos # (Auto) 0.01 Baso # (Auto) 0.00 PT INR APTT PTT Ratio POC Sodium Sodium 138 POC Potassium Potassium 4.9 D POC Chloride Chloride 104 Carbon Dioxide 27 POC Total CO2 Anion Gap 7.0 POC Anion Gap POC BUN BUN 13 Creatinine 1.15 POC Creatinine Est Cr Clr Drug Dosing 76.3 Est GFR ( Amer) 78.1 Est GFR (Non-Af Amer) 67.4 BUN/Creatinine Ratio 11.6 Glucose 158 H POC Glucose POC Glucose (other) Estimat Average Glucose 120 Hemoglobin A1c 5.8 H Lactate Calcium 8.8 POC Ioniz Calcium Linda Phosphorus 2.6 D Magnesium 2.2 Total Bilirubin 0.5 AST 119 H ALT 127 H Alkaline Phosphatase 46 Total Creatine Kinase CK-MB (CK-2) CK/CKMB % Calc POC Troponin I Troponin I 18.800 H* NT-Pro-B Natriuret Pep Total Protein 6.7 Albumin 3.4 Globulin 3.3 Albumin/Globulin Ratio 1.0 Triglycerides 129 Cholesterol 193 LDL Cholesterol, Calc 128 VLDL Cholesterol, Calc 26 HDL Cholesterol 39 Cholesterol/HDL Ratio 5 Lipase Procalcitonin TSH Specimen Hemolysis Urine Color Urine Appearance Urine pH Ur Specific [place] Urine Protein Urine Glucose (UA) Urine Ketones Urine Blood Urine Nitrite Urine Bilirubin Urine Urobilinogen Ur Leukocyte Esterase Urine WBC (Auto) Urine RBC (Auto) U Hyaline Cast (Auto) U Epithel Cells (Auto) Urine Bacteria (Auto) Ur Renal Epithelial Cell Nasal Screen MRSA (PCR) Urine Opiates Screen Ur Methadone, Qual Urine Barbiturates Ur Phencyclidine (PCP) U Amphetamin/Meth Scrn MDMA (Ecstasy) Screen U Benzodiazepines Scrn Ur Cocaine Metabolite U Marijuana (THC) Screen 04/15/19 04/15/19 06:07 08:04 WBC RBC Hgb POC Hgb Hct POC Hct MCV MCH MCHC RDW Std Deviation RDW Coeff of Valentina Plt Count MPV Immature Gran % (Auto) Neut % (Auto) Lymph % (Auto) [place] % (Auto) Eos % (Auto) Baso % (Auto) Immature Gran # (Auto) Neut # (Auto) Lymph # (Auto) [place] # (Auto) Eos # (Auto) Baso # (Auto) PT INR APTT 46.5 H* PTT Ratio 1.7 POC Sodium Sodium POC Potassium Potassium POC Chloride Chloride Carbon Dioxide POC Total CO2 Anion Gap POC Anion Gap POC BUN BUN Creatinine POC Creatinine Est Cr Clr Drug Dosing Est GFR ( Amer) Est GFR (Non-Af Amer) BUN/Creatinine Ratio Glucose POC Glucose 154 H POC Glucose (other) Estimat Average Glucose Hemoglobin A1c Lactate Calcium POC Ioniz Calcium Iln[place] Phosphorus Magnesium Total Bilirubin AST ALT Alkaline Phosphatase Total Creatine Kinase CK-MB (CK-2) CK/CKMB % Calc POC Troponin I Troponin I NT-Pro-B Natriuret Pep Total Protein Albumin Globulin Albumin/Globulin Ratio Triglycerides Cholesterol LDL Cholesterol, Calc VLDL Cholesterol, Calc HDL Cholesterol Cholesterol/HDL Ratio Lipase Procalcitonin TSH Specimen Hemolysis Urine Color Urine Appearance Urine pH Ur Specific [place] Urine Protein Urine Glucose (UA) Urine Ketones Urine Blood Urine Nitrite Urine Bilirubin Urine Urobilinogen Ur Leukocyte Esterase Urine WBC (Auto) Urine RBC (Auto) U Hyaline Cast (Auto) U Epithel Cells (Auto) Urine Bacteria (Auto) Ur Renal Epithelial Cell Nasal Screen MRSA (PCR) Urine Opiates Screen Ur Methadone, Qual Urine Barbiturates Ur Phencyclidine (PCP) U Amphetamin/Meth Scrn MDMA (Ecstasy) Screen U Benzodiazepines Scrn Ur Cocaine Metabolite U Marijuana (THC) Screen Diagnostic Findings ECGs personally reviewed: ECG 04/14/2019 at 11:24 p.m.: Sinus rhythm 71 bpm. Nonspecific T-wave abnormality. ECG 04/14/2019 at 5:34 p.m.: Sinus rhythm 85 bpm. Nonspecific T-wave abnormality. ECG 04/14/2019 at 2:22 p.m.: Sinus rhythm [address]/T-wave abnormality. ECG 04/14/2019 at 1:29 p.m.: Sinus tachycardia [address]/T- wave abnormality. IVCD. ECG 04/15/2019: Sinus rhythm 65 bpm. Nonspecific T-wave abnormality. ECG 04/15/2019 at 2:06 a.m.: Sinus rhythm 62 bpm. Nonspecific T-wave abnormality. Telemetry personally reviewed: No arrhythmia. Sinus rhythm. Echo 04/15/2019: Normal LV size with grossly low-normal systolic function. Estimated EF 50-55%. Severely hypokinetic to akinetic inferolateral wall. Mild LVH. No significant valvular abnormalities. Chest x-ray 04/15/2019: rib fractures. Significantly decreased interlobular septal thickening and pulmonary vascular prominence per Radiology. CTA chest 04/14/2019: No PE. Nondisplaced bilateral anterior rib fractures. No pneumothorax. Right greater than left interlobular septal thickening with patchy airspace opacities within the right upper lobe posteriorly and bilateral lower lobes posteriorly. Medications Administered Current Inpatient Medications Acetaminophen (Tylenol) 650 mg PO Q4H PRN PRN Reason: Pain or Fever Stop: 05/14/19 17:07 Aspirin (Ecotrin Ectab) 81 mg PO [facility] Stop: 05/15/19 08:59 Last Admin: 04/15/19 08:00 Dose: 81 mg Documented by: Atorvastatin Calcium (Lipitor) [facility] Stop: 05/14/19 17:07 Last Admin: 04/15/19 08:00 Dose: 80 mg Documented by: Dextrose (Dextrose 50%) 25 - 50 ml IV UD PRN; Protocol PRN Reason: Hypoglycemia Protocol Stop: 05/14/19 23:44 Furosemide (Lasix) 40 mg PO [facility] Stop: 05/16/19 08:59 Glucagon (Glucagen) 1 mg IM UD PRN; Protocol PRN Reason: Hypoglycemia Protocol Stop: 05/14/19 23:44 Glucose (Glucose 40%) 15 - 30 gm PO UD PRN; Protocol PRN Reason: Hypoglycemia Protocol Stop: 05/14/19 23:44 Glucose (Dex4 Glucose) 4 - 8 tabs PO UD PRN; Protocol PRN Reason: Hypoglycemia Protocol Stop: 05/14/19 23:44 Amiodarone HCl/Dextrose (Nexterone / D5w) 360 mg in 200 mls @ 16.667 mls/hr IV .Q12H [facility] Stop: 05/14/19 19:29 Last Admin: 04/15/19 08:16 Dose: 0.5 mg/min, 16.7 mls/hr Documented by: Heparin Sodium/Dextrose (Heparin Sodium/Dextrose) 25,000 units in 500 mls @ 30 mls/hr IV .[id number] [facility]; Protocol Stop: 05/15/19 00:29 Last Admin: 04/15/19 01:22 Dose: 1,500 units/hr, 30 mls/hr Documented by: Dextrose/Sodium Chloride (D5w And 1/2nss) 1,000 mls @ 80 mls/hr IV .[id number] [facility] Stop: 05/15/19 07:44 Last Admin: 04/15/19 07:58 Dose: 80 mls/hr Documented by: Insulin Aspart (Novolog Flexpen) 0 units SC ACHS [facility] Stop: 05/15/19 00:00 Last Admin: 04/15/19 06:16 Dose: Not Given Documented by: Lisinopril (Zestril) 10 mg PO QAM [facility] Stop: 05/14/19 17:07 Last Admin: 04/15/19 08:49 Dose: 10 mg Documented by: Miscellaneous (Carbohydrates For Hypoglycemia) 15 - 30 gm PO UD PRN PRN Reason: Hypoglycemia Treatment Stop: 05/14/19 23:44 Nitroglycerin (Nitrostat) 0.4 mg SL UD PRN PRN Reason: Chest Pain Stop: 05/14/19 17:07 Ondansetron HCl (Zofran) 4 mg IV Q6H PRN PRN Reason: Nausea Stop: 05/14/19 17:07 Oxycodone/Acetaminophen (Percocet 5mg/325mg) 1 tab PO Q4H PRN PRN Reason: Pain Stop: 04/28/19 17:07 Last Admin: 04/15/19 08:48 Dose: 1 tab Documented by: Polyethylene Glycol (Miralax Powder Packet) 17 gm PO DAILY PRN PRN Reason: Constipation Stop: 05/14/19 17:07 Zolpidem Tartrate (Ambien) 5 mg PO HS PRN PRN Reason: Sleep Stop: 05/14/19 17:07 PG Care Time/CCT Total # of Minutes Spent Total Time Spent with Patient: Total time spent is greater than 50% in coordination of care (as documented) at patient's floor/unit and/or counseling patient:
[2019-04-15] MEDS ORDERED: TICAGRELOR 90 MG TAB PO ONE ×2 (12:16→14:52)
[2019-04-15] MEDS: METOPROLOL TARTRATE 25 MG TAB PO SCH ×2 (12:51→21:03)
[2019-04-15] MEDS ORDERED: HEPARIN (PORCINE) 1000 UNIT/ML 10 ML (CATH LAB USE ONLY) ONE (13:26)
[2019-04-15] MEDS ORDERED: NiCARDipine HCL INJ 2.5 MG/ML 10 ML AMP ONE (13:27)
[2019-04-15] MEDS ORDERED: MIDAZOLAM HCL 1 MG/ML 2ML VIAL ONE ×2 (13:27→14:28)
[2019-04-15] MEDS ORDERED: fentaNYL citrate 100 MCG/2 ML VIAL ONE (13:27)
[2019-04-15] MEDS ORDERED: NITROGLYCERIN/D5W 100MCG/ML 20ML SYR ONE (13:28)
--- NOTE | 2019-04-15 13:35 | Pre Anesthesia Assessment ---
Date of Service April 15, 2019 Pre Sedation Assessment Vital Signs Temp Pulse Pulse Resp BP BP Pulse Ox 04/15/19 10:01 73 11 L 140/72 92 04/15/19 09:03 73 20 148/70 H 94 04/15/19 08:01 36.6 C 67 20 157/75 H 94 04/15/19 06:01 65 16 149/76 H 92 04/15/19 05:00 63 27 H 155/82 H 93 04/15/19 04:46 36.8 C 04/15/19 04:00 62 14 135/72 92 04/15/19 03:00 64 14 123/74 94 04/15/19 02:00 62 15 129/73 91 04/15/19 01:01 65 12 129/73 91 04/15/19 00:00 66 17 130/53 L 92 04/14/19 23:39 36.7 C 04/14/19 23:00 68 21 123/72 93 04/14/19 22:00 67 21 122/74 94 04/14/19 21:00 79 18 135/78 94 04/14/19 20:00 76 20 104/68 93 04/14/19 19:00 79 20 118/76 95 04/14/19 18:33 36.6 C 76 20 141/103 H 94 04/14/19 18:00 81 22 100/71 92 04/14/19 17:00 36.6 C 95 H 37 H 141/103 H 94 04/14/19 15:55 90 98 04/14/19 15:50 91 H 97 04/14/19 15:46 90 119/86 97 04/14/19 15:45 89 98 04/14/19 15:40 90 97 04/14/19 15:35 90 96 04/14/19 15:30 90 96 04/14/19 15:25 91 H 97 04/14/19 15:20 93 H 96 04/14/19 15:15 92 H 97 04/14/19 15:10 94 H 96 04/14/19 15:05 95 H 96 04/14/19 15:00 94 H 95 04/14/19 14:55 96 H 95 04/14/19 14:50 97 H 92 04/14/19 14:45 96 H 96 04/14/19 14:40 96 H 95 04/14/19 14:35 95 H 95 04/14/19 14:30 97 H 93 04/14/19 14:25 98 H 92 04/14/19 14:20 98 H 92 04/14/19 14:15 95 H 04/14/19 14:14 95 H 04/14/19 13:45 102 H 04/14/19 13:40 102 H 94 04/14/19 13:35 104 H 96 Cardiovascular RRR, no murmur, no edema Respiratory normal respiratory effort, lungs clear to auscultation Pre-Sedation Airway Assessment Smoking Status: Unknown if ever smoked Mallampati Class: III ASA: ASA3 NPO Status Date of Last Intake of Fluids: 04/14/19 Time of Last Intake of Fluids: 23:00 Date of Last Intake of Solid Food: 04/14/19 Time of Last Intake of Solid Foods: 23:00 Procedure Planning Contraindications for Sedation: none Current Medications Reviewed: Yes Notes The planned sedation has been discussed with the patient. Informed Consent was obtained. I have identified the patient, determined the appropriateness of sedation and have assessed the patient immediately prior to the procedure. All medicine(s) and interventions are by my order.
--- NOTE | 2019-04-15 14:39 | Cardiac Catheterization ---
[facility] Data: Rate Setter Cardiac Status Clinical evaluation leading to the procedure CAD Presenation: Non STEMI (Cardiac Arrest) Anginal Classification: No Symptoms (Cardiac arrest with likely ventricular arrhythmia (AED shock x 4).) Heart Failure: No Cardiogenic Shock within 24 Hours: No Cardiac Arrest within 24 Hours: Yes Imaging Studies Past 6 Months: Yes Stress Studies Past 6 Months: No Standard Exercise Test: No Stress Echocardiogram: No Stress Testing w/SPECT MPI: No Cardiac CTA: No Coronary Anatomy Dominant: Right Left Ventricular Angiography EF (%): n/a Diagnostic Physicians Name: Lito Claudio MD Status: Elective Closure Device Percutaneous Entry Location: Radial Closure Device: Radial Band (following PCI) Recommendations: PCI without planned CABG Cardiac Cath Procedure Full Procedure Date April 15, 2019 Pre-Procedure Diagnosis Pre-Procedure Diagnosis: Non STEMI and Cardiothoracic Symptom (Cardiac Arrest) AUC Score AUC Score: 9 Post-Procedure Diagnosis Post-Procedure Diagnosis: Severe CAD Procedure(s) Performed Procedure(s) Performed: Coronary Angiography and Left Heart Cath Fish Cleaner Lito Claudio MD Crewman Main Battle Tank(s) Louann Gant Estimated Blood Loss Estimated Blood Loss: < 25 ml Medication(s) Medication(s): Fentanyl, Heparin, Lidocaine 1%, Nicardipine and Versed Summary of Findings Procedures: 1. Coronary angiography 2. Left heart catheterization 3. Moderate sedation Coronary angiography: 1. Left main coronary artery: Left main coronary artery is very short without significant CAD. 2. Left anterior descending: LAD is a large-caliber vessel that wraps around the apex. Proximal LAD 40%. Early mid LAD 40% followed by mid LAD 70%. Large D1 with lateral branch. Proximal lateral branch 40%. Small D2. DK-3 flow throughout the LAD system. 3. Circumflex: Large caliber vessel. Mid circumflex 30%. High OM1 proximal 100% but fills via left to left collaterals. Large OM 2 without significant CAD. 4. Right coronary artery: The RCA is a large and dominant vessel. Ostial RCA 70 to 80%. Proximal LAD subtotal 99% stenosis followed by 100% occlusion. There are right to right bridging collaterals. PDA and PL branch fills via left to left collaterals. 5. Ramus intermedius: There is a small caliber ramus. Proximal ramus 40 to 50%. Left heart catheterization: 1. Left angiography was not performed. 2. No significant aortic stenosis. Peak to peak gradient across the aortic valve is 0. 3. LVEDP 13 mmHg. Moderate sedation: 1. Sedation start time: 1:36 PM 2. Sedation end time: 2:20 PM Impression: 1. Occluded RCA with left to right collaterals. 2. Severe mid LAD CAD. 3. Occluded OM1 filling via left to left collaterals. 4. Otherwise, mild to moderate nonobstructive CAD within the LAD, diagonal, circumflex vessels. 5. No aortic stenosis. 6. Normal LVEDP. Plan: 1. Dr. Talbert of interventional cardiology was asked to review images and plans to perform PCI of mid LAD. 2. Optimize medical therapy. Hemodynamics Rest Ao:: 101/47 Final Ao: 102/54 LV: /07/26 Recommendations Recommendations: PCI without planned CABG Specimens Specimens: None Radiation Exposure (mGy) 1013 mGy. Fluoro time 3.6 min. Contrast (mls) 60 ml Procedural Complication(s) None Disposition Remained in soap slabber for PCI. I attest to the content of the Intraoperative Record and any orders documented therein. Any exceptions are noted below.
--- NOTE | 2019-04-15 14:53 | Post Anesthesia Assessment ---
Date of Service April 15, 2019 Post Sedation Assessment Vital Signs Temp Pulse Pulse Resp BP BP Pulse Ox 04/15/19 12:00 98.1 F 64 17 117/63 91 04/15/19 10:01 73 11 L 140/72 92 04/15/19 09:03 73 20 148/70 H 94 04/15/19 08:01 97.9 F 67 20 157/75 H 94 04/15/19 06:01 65 16 149/76 H 92 04/15/19 05:00 63 27 H 155/82 H 93 04/15/19 04:46 98.2 F 04/15/19 04:00 62 14 135/72 92 04/15/19 03:00 64 14 123/74 94 04/15/19 02:00 62 15 129/73 91 04/15/19 01:01 65 12 129/73 91 04/15/19 00:00 66 17 130/53 L 92 04/14/19 23:39 98.1 F 04/14/19 23:00 68 21 123/72 93 04/14/19 22:00 67 21 122/74 94 04/14/19 21:00 79 18 135/78 94 04/14/19 20:00 76 20 104/68 93 04/14/19 19:00 79 20 118/76 95 04/14/19 18:33 97.9 F 76 20 141/103 H 94 04/14/19 18:00 81 22 100/71 92 04/14/19 17:00 97.9 F 95 H 37 H 141/103 H 94 04/14/19 15:55 90 98 04/14/19 15:50 91 H 97 04/14/19 15:46 90 119/86 97 04/14/19 15:45 89 98 04/14/19 15:40 90 97 04/14/19 15:35 90 96 04/14/19 15:30 90 96 04/14/19 15:25 91 H 97 04/14/19 15:20 93 H 96 04/14/19 15:15 92 H 97 04/14/19 15:10 94 H 96 04/14/19 15:05 95 H 96 04/14/19 15:00 94 H 95 04/14/19 14:55 96 H 95 Recovery Score Activity: Moves 4 extremities Respiration: Deep Breath/Cough Circulation: +/-20% PreAnes Value Consciousness: Fully Awake Oxygen Saturation: O2 needed for >90% Discharge Sedation Level of Care: Fast Track Phase II Post Sedation Plan On clinical assessment, the patient appears to have tolerated the sedation without complications. Patient is recovering as anticipated. Patient will continue to be monitored by nursing and may be discharged when sedation discharge criteria are met per below protocol. Upon Completions of procedure and additional 15 minutes continue every 5 minute vital signs and the P.A.R. score; then discharge to a Phase I or Fast Track to Phase II per the following guidelines: * Discharge Patient to appropriate Phase II area if PAR is 8 or greater or return to pre- procedure baseline. The post - procedure orders will be as directed. * If PAR score is less than 8 or not return to pre-procedure baseline then patient will follow Phase I monitoring till PAR is reached for Phase II. The Phase I may be done in procedure room or may call to secure a Phase I area. * If naloxone or flumazenil are used for reversal, hold in Phase I for continued monitoring from when last reversal dose was given for a minimum of 60 minutes or longer pending the nurse and/or physician discretion of patient condition before discharge to Phase II. Please call the Sedation Physician to re-evaluate and complete post-note for discharge to Phase II area. Do NOT discharge from procedure sedation or Phase 1 until post- sedation evaluation note is complete by procedure /sedation MD Sedation Discharge Instructions to be given to the patient at discharge to home.
--- NOTE | 2019-04-15 14:58 | Cardiac Catheterization ---
[facility] Data: Php Architect Cardiac Status Clinical evaluation leading to the procedure CAD Presenation: Non STEMI Anginal Classification: CCS IV Heart Failure: No Cardiogenic Shock within 24 Hours: No Cardiac Arrest within 24 Hours: No Imaging Studies Past 6 Months: Yes Stress Studies Past 6 Months: No Diagnostic Physicians Name: Michoacano Talbert MD Status: Elective Closure Device Percutaneous Entry Location: Radial Closure Device: Radial Band Recommendations: PCI without planned CABG PCI Indication: PCI for high risk Non-TATY Lesion Segment Name: mid LAD Culprit Artery: Yes Stenosis Prior to Rx (%): 70 Chronic Total Occlusion: No IVUS: No FFR: No Pre-Procedure DK Flow: 3 Previously Treated Lesion: No Lesion Complexity: Non-High/Non-C Lesion Length (mm): 20 Thrombus Present: No Bifurcation Lesion: No Guidewire Across Lesion: Stenosis Post-Procedure (%): 0 Post-Procedure DK Flow: 3 Devices(s) Deployed: Yes Yes Intraprocedure Events Significant Disection: No Perforation: No Cardiac Cath Procedure Full Procedure Date April 15, 2019 Pre-Procedure Diagnosis Pre-Procedure Diagnosis: Non STEMI and Cardiothoracic Symptom (Cardiac Arrest) AUC Score AUC Score: 9 Post-Procedure Diagnosis Post-Procedure Diagnosis: Severe CAD and Successful PCI Procedure(s) Performed Procedure(s) Performed: Coronary Angiography and Drug Eluting Stent Plodding Operator Michoacano Talbert MD Lead Case Manager(s) Louann Gant Estimated Blood Loss Estimated Blood Loss: < 25 ml Medication(s) Medication(s): Fentanyl, Heparin, Lidocaine 1%, Nicardipine, Nitroglycerin and Versed Medication(s): Ticagrelor Summary of Findings Indication: NSTEMI, cardiac arrest Access: 6 Fr right radial artery Catheters: EBU 3.5 guide Findings: For full details of patient's coronary angiography please cath report dictated by Dr. Claudio. Briefly, patient found to have severe multi-vessel disease including a 70 % stenosis involving the mid LAD and chronic mid RCA occlusion with [id number] collaterals. Decision to proceed with PCI to mid LAD. -- PCI -- Antithrombotic therapy: Heparin, ticagrelor Procedure: Left main cannulated with EBU 3.5 guide BMW wire passed across lesion into distal vessel Mid LAD lesion predilated with 2.5 compliant balloon Dilated lesion stented with 2.5 x 26 mm [place] drug-eluting stent Stent post-dilated with stent balloon IC vasodilators administered for spasm Post procedure DK 3 flow, stent well expanded with minimal residual stenosis and no apparent cardiac complications. Arterial Closure: TR band Summary: 1. Successful PCI of mid LAD with single drug-eluting stent (2.5 x 26 mm Kiet). Recommendations: To PCU for continued monitoring Loaded with ticagrelor 180 mg in cath Continue dual-antiplatelet therapy for at least one year Continue statin, and ASCVD risk factor modification Hemodynamics Rest Ao:: 102/54/73 Final Ao: 101/49/70 LV: -- Recommendations Recommendations: PCI without planned CABG Specimens Specimens: None Radiation Exposure (mGy) 1578 Contrast (mls) 120 Fluids (cc crystalloids) Fluids (cc crystalloids): 40 Drains Drains: none Anesthesia moderate Procedural Complication(s) None Disposition ICU I attest to the content of the Intraoperative Record and any orders documented therein. Any exceptions are noted below.
[2019-04-15] MEDS ORDERED: SODIUM CHLORIDE 0.9% 1000ML 1,000 ML IV SCH (15:00)
[2019-04-15] MEDS: TICAGRELOR 90 MG TAB PO SCH (21:03)
--- NOTE | 2019-04-15 22:13 | Hospitalist Progress Note ---
Date of Service April 15, 2019 Assessment & Plan (1) Cardiac arrest: Continue ICU stay Discussed with ICU resident possibility of getting AED strip from long-term to determine rhythm abnormality Vital signs every 4 hours Amiodarone drip as per ICU management Mg > 2 K > 4 (2) Non-ST elevation (NSTEMI) myocardial infarction: Appreciate cardiology management Cardiac cath today At risk of diabetes as per HbA1C of 5.8 LDL 128 Antiplatelets, BB, ACEi, statin as per cardiology management (3) Dyslipidemia: High intensity statin (4) Pulmonary edema: If able to swallow start heart healthy, low-sodium diet, low-fat and restrict free fluid to 1200 mils p.o. Diuretics as per ICU management Strict in and out Daily weight (5) Contusion of face: Face CT without fracture Continue supportive care Bacitracin for the scratches (6) Fracture, ribs: Pain management as per ICU (7) Claudication: Suspect underlying peripheral artery disease Long standing and good walking distance prior to onset Recommend outpatient workup Antiplatelets and statin as per CAD (8) DVT prophylaxis: Heparin drip as per ICU management Subjective Patient was seen in the morning prior to cardiac catheterization. Comfortable at rest. Revisited history with the patient -consistent with admission H&P, remembers having chest pain prior to cardiac arrest but different from current pain. He continues to have chest pain on inspiration, reproducible on palpation, aching, worse on coughing. Feels congested but unable to cough up due to the pain. Review of Systems Review of Systems: All systems reviewed & are unremarkable except as noted in HPI & below Cardiovascular: as per Subjective / HPI and + claudication (right sided, able to walk 0.25 mile prior to start of symptoms); no chest pain with activity, no radiating jaw, neck or arm pain, no dyspnea, no dyspnea at rest, no orthopnea, no paroxysmal nocturnal dyspnea, no palpitations, no lightheadedness, no edema (no prior history), no calf pain and no Raynauds symptoms Physical Exam Constitutional: well developed and + obese Eyes: PERRL, conjunctivae normal, anicteric sclerae ENMT: Nose: + external nose abnormality (facial bruising) Neck: trachea midline, no thyromegaly Respiratory: normal respiratory effort Auscultation: + crackles (fine bibasal) and + rhonchi (anteriorly) Cardiovascular: Rate/Rhythm: regular rate and regular rhythm Heart Sounds: normal S1 and normal S2; no gallop, no murmur and no cardiac rub Extremities: + pedal edema (1+ b/l equal to mid shins) Gastrointestinal (Abdomen): normal bowel sounds, soft, nontender, no hepatosplenomegaly Inspection/Auscultation: + abdomen distended (patient reports having a large meal prior to cardiac arrest and feels bloat) Musculoskeletal: no cyanosis or clubbing, extremities motor strength 5/5 Skin: no rashes, warm and dry Neurologic: moves all extremities and awake; no focal motor deficits and not confused Motor/Sensory: no tremor and no pronator drift Psychiatric: A+Ox3, euthymic affect Lymphatic: no cervical or axillary lymphadenopathy Results & Data Vital Signs (Past 12 Hours) Vital Signs Temp Pulse Pulse Resp BP BP Pulse Ox 04/15/19 21:29 70 04/15/19 20:00 65 15 102/64 94 04/15/19 19:30 67 15 97 04/15/19 19:00 97.3 F L 69 16 130/67 97 04/15/19 18:13 98.1 F 68 21 103/70 96 04/15/19 17:45 65 21 107/67 95 04/15/19 17:13 64 18 128/73 95 04/15/19 16:13 63 20 113/76 97 04/15/19 16:00 64 04/15/19 15:43 61 20 113/63 95 04/15/19 15:13 57 L 20 110/71 95 04/15/19 14:58 98.1 F 56 L 18 106/66 93 04/15/19 12:00 98.1 F 64 17 117/63 91 PG Care Time/CCT Total # of Minutes Spent Total Time Spent with Patient: Total time spent is greater than 50% in coordination of care (as documented) at patient's floor/unit and/or counseling patient: (1) Fracture, ribs Encounter type: initial encounter Fracture type: closed Laterality: unspecified laterality Rib fracture type: multiple ribs Qualified Code(s): S22.49XA - Multiple fractures of ribs, unspecified side, initial encounter for closed fracture (2) Pulmonary edema Chronicity: acute Qualified Code(s): J81.0 - Acute pulmonary edema (3) Contusion of face Encounter type: initial encounter Qualified Code(s): S00.83XA - Contusion of other part of head, initial encounter
--- NOTE | 2019-04-15 22:21 | Critical Care Progress Note ---
Date of Service April 15, 2019 Assessment & Plan (1) Cardiac arrest: --Status post cardiac arrest Patient had to be shocked 4 times by ED along with CPR. Patient was alert and talking by the time EMS reached the spot. Likely represent arrhythmia. Patient's QTC is prolonged at 510. Patient was given bolus amiodarone 150 mg followed by amiodarone drip in the ER. We will continue with amiodarone drip for 24 hours. Troponin increased to up to 18. On full ACS protocol. Cardiology on consulted. Keep potassium level greater than 4, magnesium greater than 2, phosphorus greater than 3. Monitor for any arrhythmias. Follow-up 2D echo. Serial EKGs. NPO for possible cardiac cath today -- S/p HAGMA Delta-delta: Less than 1 Likely sec to metabolic acidosis secondary lactic acidosis, non-anion gap metabolic acidosis will order urine lites. Monitor --Bilateral upper lobe infiltrate more on the right side Differential includes aspiration with pulmonary edema given the patient had cardiac arrest DC abx --Morbid obesity with probable ADAN Needs outpatient sleep study No CPAP given the patient has facial trauma --DVT prophylaxis: Heparin dirp Plan: NPO for cardiac cath (2) Fracture, ribs: Pain management. (3) Contusion of face: Subjective Patient seen and examined at bedside. Feeling better. No Chest pain today. No SOB, No SPENCE, No N or V. Feeling better. Review of Systems Review of Systems: All systems reviewed & are unremarkable except as noted in HPI & below Physical Exam Physical Exam: Constitutional: NAD HEENT: EOMI, PERRLA, anicteric Respiratory system: Decreased air entry bilaterally, no wheeze, no rhonchi, no crackles CVS: S1-S2 positive, no murmurs or gallops Abdomen: Soft, nontender, nondistended, positive bowel sounds x4, obese Extremities: +2 pulses bilaterally radialis/ dorsalis pedis, +2 edema, no cyanosis Neuro: Awake alert oriented x3 Psych: Normal mood and affect G/U: Positive Flores Musculoskeletal: no cyanosis or clubbing, extremities motor strength 5/5 Lymphatic: no cervical or axillary lymphadenopathy Results & Data Vital Signs (Past 12 Hours) Vital Signs Temp Pulse Pulse Resp BP BP Pulse Ox 04/15/19 22:00 66 19 136/90 95 04/15/19 21:29 70 04/15/19 21:00 67 17 134/73 96 04/15/19 20:00 65 15 102/64 94 04/15/19 19:30 67 15 97 04/15/19 19:00 36.3 C L 69 16 130/67 97 04/15/19 18:13 36.7 C 68 21 103/70 96 04/15/19 17:45 65 21 107/67 95 04/15/19 17:13 64 18 128/73 95 04/15/19 16:13 63 20 113/76 97 04/15/19 16:00 64 04/15/19 15:43 61 20 113/63 95 04/15/19 15:13 57 L 20 110/71 95 04/15/19 14:58 36.7 C 56 L 18 106/66 93 04/15/19 12:00 36.7 C 64 17 117/63 91 Laboratory Results 04/15/19 05:07 04/15/19 05:07 Diagnostic Findings CXR reviewed personally: Improvement in aeration. Decrease in upper lobe infiltrates. PG Care Time/CCT Total # of Minutes Spent Total Time Spent with Patient: Total time spent is greater than 50% in coordination of care (as documented) at patient's floor/unit and/or counseling patient: Critical Care Time: Yes Total Critical Care Time: 33 (1) Fracture, ribs Encounter type: initial encounter Fracture type: closed Laterality: unspecified laterality Rib fracture type: multiple ribs Qualified Code(s): S22.49XA - Multiple fractures of ribs, unspecified side, initial encounter for closed fracture (2) Contusion of face Encounter type: initial encounter Qualified Code(s): S00.83XA - Contusion of other part of head, initial encounter
[2019-04-16] MEDS: OXYCODONE/ACETAMINOPHEN 5mg/325mg TAB PO PRN ×2 (00:12→05:14)
[2019-04-16 04:44] LABS: Basophils # (auto) 0.01 K/uL (0-0.2); Basophils % (auto) 0.1 %; Eosinophils # (auto) 0.04 K/uL (0-0.5); Eosinophils % (auto) 0.4 %; Hematocrit (blood only) 40.3 % (42-52); Hemoglobin 14.1 g/dL (14.0-18.0); Immature Granulocytes # (auto) 0.03 K/uL (0.00-0.02); Immature Granulocytes % (auto) 0.3 %; Lymphocytes # (auto) 1.45 K/uL (1.2-3.4); Lymphocytes % (auto) 13.2 %; Mean Corpuscular Hemoglobin 31.1 pg (25-34); Mean Platelet Volume 10.1 fL (7.4-10.4); Neutrophils # (auto) 8.34 K/uL (1.4-6.5); Platelet Count 164 K/uL (130-400); RDW Coefficient of Variation 14.1 % (11.5-14.5); RDW Standard Deviation 46.1 fL (36.4-46.3); Red Blood Count 4.53 M/uL (4.7-6.1); White Blood Count 10.97 K/uL (4.8-10.8)
[2019-04-16 04:55] LABS: Partial Thromboplastin Ratio 0.9; Partial Thromboplastin Time 23.8 Seconds (21.0-31.0)
[2019-04-16 05:07] LABS: Albumin Globulin Ratio 1.1 (0.9-2); Albumin Level 3.4 gm/dl (3.4-5.0); BUN Creatinine Ratio 14.9 (10-20); Calcium 8.8 mg/dl (8.5-10.1); Creatinine Clr Calc Pharmacy 69.4 ml/min; Est GFR (African American) 83.3; Est GFR (Non-African American) 71.9; Globulin 3.1 gm/dl (2.5-4.0); Phosphorus 2.6 mg/dl (2.5-4.9); Potassium 3.9 mmol/L (3.5-5.1); Total Protein 6.5 gm/dl (6.4-8.2)
[2019-04-16] MEDS: METOPROLOL TARTRATE 25 MG TAB PO SCH ×2 (07:32→20:30)
[2019-04-16] MEDS: TICAGRELOR 90 MG TAB PO SCH ×2 (07:33→20:31)
[2019-04-16] MEDS: ASPIRIN 81 MG ECTAB PO SCH (07:33)
[2019-04-16] MEDS: ATORVASTATIN 40 MG TAB PO SCH (07:33)
[2019-04-16] MEDS: INSULIN ASPART 100 UNITS/ML 3 ML PEN SC SCH ×4 (07:33→21:02)
[2019-04-16] MEDS: FUROSEMIDE 40 MG TAB PO SCH (07:34)
--- NOTE | 2019-04-16 08:07 | Critical Care Progress Note ---
Date of Service April 16, 2019 Assessment & Plan (1) DVT prophylaxis: S/P Cardiac Arrest Patient had to be shocked 4 times by AED and CPR was performed for several minutes before ROSC was obtained in field Patient was alert and talking by the time EMS reached the spot. Likely represent arrhythmia. Patient's QTC is prolonged at 510. Troponin increased to up to 18. On full ACS protocol. Cardiology was consulted and took patient to the public works laborer where he received one stent in LAD Keep potassium level greater than 4, magnesium greater than 2, phosphorus greater than 3. Monitor for any arrhythmias. Echo showing hypokinesis of left ventricular inferolateral wall On regular diet today, chest pain only reproducible from cpr No further concerns Will need to continue lisinopril, metoprolol, ticagrelor, ASA 81, and atorvastatin moving forward --Bilateral upper lobe infiltrate more on the right side Follow up CXR showing resolved pulmonary edema and vascular congestion --Morbid obesity with probable ADAN Needs outpatient sleep study No CPAP given the patient has facial trauma --DVT prophylaxis: Will need to start chemical DVT PPx today Plan: Step down to tele today (2) Claudication: (3) Dyslipidemia: (4) S/P cholecystectomy: (5) Non-ST elevation (NSTEMI) myocardial infarction: (6) Cardiac arrest: (7) Contusion of face: (8) Fracture, ribs: Supervising Physician Co-Signing Physician Notes Dr. Henderson was the resident-physician during care of patient. I separately evaluated patient for pete portions of the history and the exam. I was present during the critical portion of medical decision making, and I discussed the case with the resident. I generally agree with the findings and plan except for any additions/exceptions noted. Patient seen and examined. Feeling better. Denies any chest pain. No dizziness, no nausea or vomiting. No hematuria, no hematochezia. Patient had a drug-eluting stent placed in the mid LAD yesterday. That was likely the cause of his arrhythmia. Amiodarone has been discontinued. Patient to continue with beta-mariusz, ROSALEE inhibitor, statin, aspirin and Brilinta. I have personally spent 30 minutes of critical care time in the direct ma nagement of this patient. This is a life/limb threatening event. This includes time spent evaluating patient, direct bedside care, chart review, placing orders, interpretation of diagnostic studies, discussion with consultants, patient, and/or family members regarding treatment decisions, as well as other required patient management activities. This time is exclusive of all separately billable procedures, and teaching time and separate from and in addition to any other critical care service time. Subjective Kimani Thorpe doing quite well this morning, continues to have the mild chest pain over his right chest from CPR. Mark removed yesterday, up and to the bathroom without difficulty. He denies any palpitations, syncope or presyncope, shortness of breath, respiratory issues, GI complaints, Abdominal pain, Diaphoresis, fevers or chills, and tells me his appetite has been excellent. He notes that his lower limb edema is chronic and unchanged from baseline. Review of Systems Review of Systems: All systems reviewed & are unremarkable except as noted in HPI & below Physical Exam Physical Exam: Constitutional: 63 year old man with facial abrasions, appearing stated age in no apparent distress Eyes: EOMMI, anicteric sclerae Respiratory: No apparent respiratory distress, chest expansion symmetric, mild crackles right lower lobe, good air entry all lung marin Cardiovascular: Regular rate, rhythm, heart sounds dual, no murmurs, rubs, skips, or gallops, 2+ pitting edema b/l lower extremities is chronic Skin: Abrasions to face from fall, no other concerns : No Flores Musculoskeletal: no cyanosis or clubbing, extremities motor strength 5/5 Lymphatic: no cervical or axillary lymphadenopathy Results & Data Vital Signs (Past 12 Hours) Vital Signs Temp Pulse Resp BP Pulse Ox 04/16/19 06:00 36.7 C 70 16 119/60 92 04/16/19 05:00 72 15 116/71 93 04/16/19 04:01 71 16 145/76 H 93 04/16/19 04:00 37.9 C H 72 24 93 04/16/19 03:00 68 13 94/49 L 92 04/16/19 02:01 64 16 107/67 91 04/16/19 01:01 63 17 107/82 93 04/16/19 01:00 63 18 92 04/16/19 00:00 37.1 C 72 18 159/77 H 93 04/15/19 23:31 65 04/15/19 23:10 64 12 93 04/15/19 23:09 64 16 140/71 93 04/15/19 23:00 65 13 93 04/15/19 22:00 66 19 136/90 95 04/15/19 21:29 70 04/15/19 21:00 67 17 134/73 96 04/15/19 20:00 65 15 102/64 94 Laboratory Results 04/16/19 04:05 04/16/19 04:05 PG Care Time/CCT Total # of Minutes Spent Total Time Spent with Patient: Total time spent is greater than 50% in coordination of care (as documented) at patient's floor/unit and/or counseling patient: Resident Activity Tracking Resident Involvement: Resident Care Provided Care Provided: Adult Hospital Medicine (1) Fracture, ribs Encounter type: initial encounter Fracture type: closed Laterality: unspecified laterality Rib fracture type: multiple ribs Qualified Code(s): S22.49XA - Multiple fractures of ribs, unspecified side, initial encounter for closed fracture (2) Contusion of face Encounter type: initial encounter Qualified Code(s): S00.83XA - Contusion of other part of head, initial encounter
[2019-04-16] MEDS ORDERED: TRAMADOL/ACETAMINOPHEN 37.5/325MG TAB PO PRN (10:09)
[2019-04-16] MEDS: lisinopriL 10 MG TAB PO SCH (10:49)
[2019-04-16] MEDS: ENOXAPARIN INJ 40 MG/0.4 ML SYR SQ SCH (11:55)
--- NOTE | 2019-04-16 12:24 | Cardiology Progress Note ---
Date of Service April 16, 2019 Assessment & Plan (1) Cardiac arrest: Based on presentation, cardiac arrest likely due to ischemic arrhythmia such as ventricular tachycardia or ventricular fibrillation. No arrhythmia noted while hospitalized. Underwent mid LAD PCI yesterday. Continue beta- mariusz. Amiodarone has been discontinued.LV systolic function low normal. (2) Non-ST elevation (NSTEMI) myocardial infarction: PCI of mid LAD. Continue medical therapy. (3) CAD (coronary artery disease): Occluded RCA and OM both fill via [id number] collaterals. Mid LAD PCI performed on 04/15/2019. Continue aspirin 81 mg daily indefinitely. Continue Brilinta for at least 1 year. Continue beta-mariusz, high-intensity statin therapy, and ROSALEE-inhibitor. (4) S/P coronary artery stent placement: Continue anti-platelet therapy as outlined. (5) Dyslipidemia: Continue high-intensity statin therapy. Monitor transaminase levels which are elevated at baseline, but are trending downward following his cardiac arrest. Disposition: I will be away from the hospital for the next 2 days. If no arrhythmia or complication, can be discharged from a cardiac perspective tomorrow. Would recommend ambulation prior to discharge. Recommend cardiology follow-up in the next 1-2 weeks in the outpatient setting. Please call on-call sheet metal roofer for any questions or concerns. Subjective He denies chest pain, shortness of breath, syncope, near-syncope, palpitations, edema, or bleeding such as melena, hematochezia, or hematuria. Yesterday he underwent mid LAD PCI. No known complications from his right radial cath site. Review of systems: As above. Physical Exam Physical Exam: Gen.: No acute distress. Alert and oriented. HEENT: Anicteric sclera. Neck: No JVD. Cardiac: Regular. Normal S1-S2. No murmurs, rubs, or gallops. Pulmonary: Clear to auscultation bilaterally without wheezes, rales, or rhonchi. Abdomen: Soft, nontender, nondistended, with normoactive bowel sounds. No bruits noted. Extremities: 2+ right radial pulse. Right radial cath site is clean, dry, and intact without erythema or discharge. No hematoma. Trace bilateral lower extremity edema. No cyanosis. Psychiatric: Affect appears appropriate. Results & Data Vital Signs (Past 12 Hours) Vital Signs Temp Pulse Resp BP Pulse Ox 10/04/19 11:00 68 12 04/16/19 10:00 71 19 139/65 93 04/16/19 09:01 69 19 137/77 91 04/16/19 09:00 67 16 92 04/16/19 08:00 36.8 C 75 16 112/56 L 92 04/16/19 07:00 67 17 109/69 91 04/16/19 06:00 36.7 C 70 16 119/60 92 04/16/19 05:00 72 15 116/71 93 04/16/19 04:01 71 16 145/76 H 93 04/16/19 04:00 37.9 C H 72 24 93 04/16/19 03:00 68 13 94/49 L 92 04/16/19 02:01 64 16 107/67 91 04/16/19 01:01 63 17 107/82 93 04/16/19 01:00 63 18 92 Laboratory Results Laboratory Results - last 24 hr 04/15/19 04/15/19 04/15/19 11:50 17:11 21:00 WBC RBC Hgb Hct MCV MCH MCHC RDW Std Deviation RDW Coeff of Valentina Plt Count MPV Immature Gran % (Auto) Neut % (Auto) Lymph % (Auto) [place] % (Auto) Eos % (Auto) Baso % (Auto) Immature Gran # (Auto) Neut # (Auto) Lymph # (Auto) [place] # (Auto) Eos # (Auto) Baso # (Auto) APTT PTT Ratio Sodium Potassium Chloride Carbon Dioxide Anion Gap BUN Creatinine Est Cr Clr Drug Dosing Est GFR ( Amer) Est GFR (Non-Af Amer) BUN/Creatinine Ratio Glucose POC Glucose 130 H 113 H 123 H Calcium Phosphorus Magnesium Total Bilirubin AST ALT Alkaline Phosphatase Troponin I Total Protein Albumin Globulin Albumin/Globulin Ratio 04/15/19 04/16/19 04/16/19 22:51 04:05 04:05 WBC 10.97 H RBC 4.53 L Hgb 14.1 Hct 40.3 L MCV 89.0 MCH 31.1 MCHC 35.0 RDW Std Deviation 46.1 RDW Coeff of Valentina 14.1 Plt Count 164 MPV 10.1 Immature Gran % (Auto) 0.3 Neut % (Auto) 76.0 Lymph % (Auto) 13.2 [place] % (Auto) 10.0 Eos % (Auto) 0.4 Baso % (Auto) 0.1 Immature Gran # (Auto) 0.03 H Neut # (Auto) 8.34 H Lymph # (Auto) 1.45 [place] # (Auto) 1.10 H Eos # (Auto) 0.04 Baso # (Auto) 0.01 APTT PTT Ratio Sodium 138 Potassium 3.9 D Chloride 105 Carbon Dioxide 25 Anion Gap 8.0 BUN 16 Creatinine 1.09 Est Cr Clr Drug Dosing 69.4 Est GFR ( Amer) 83.3 Est GFR (Non-Af Amer) 71.9 BUN/Creatinine Ratio 14.9 Glucose 96 POC Glucose Calcium 8.8 Phosphorus 2.6 Magnesium 2.0 Total Bilirubin 1.0 D AST 97 H ALT 99 H Alkaline Phosphatase 47 Troponin I 12.800 H* Total Protein 6.5 Albumin 3.4 Globulin 3.1 Albumin/Globulin Ratio 1.1 04/16/19 04/16/19 04/16/19 04:05 07:20 11:38 WBC RBC Hgb Hct MCV MCH MCHC RDW Std Deviation RDW Coeff of Valentina Plt Count MPV Immature Gran % (Auto) Neut % (Auto) Lymph % (Auto) [place] % (Auto) Eos % (Auto) Baso % (Auto) Immature Gran # (Auto) Neut # (Auto) Lymph # (Auto) [place] # (Auto) Eos # (Auto) Baso # (Auto) APTT 23.8 PTT Ratio 0.9 Sodium Potassium Chloride Carbon Dioxide Anion Gap BUN Creatinine Est Cr Clr Drug Dosing Est GFR ( Amer) Est GFR (Non-Af Amer) BUN/Creatinine Ratio Glucose POC Glucose 109 H 103 H Calcium Phosphorus Magnesium Total Bilirubin AST ALT Alkaline Phosphatase Troponin I Total Protein Albumin Globulin Albumin/Globulin Ratio Diagnostic Findings Telemetry personally reviewed: No arrhythmia. Sinus rhythm. Cardiac catheterization 04/15/2019 report reviewed: Coronary angiography: 1. Left main coronary artery: Left main coronary artery is very short without significant CAD. 2. Left anterior descending: LAD is a large-caliber vessel that wraps around the apex. Proximal LAD 40%. Early mid LAD 40% followed by mid LAD 70%. Large D1 with lateral branch. Proximal lateral branch 40%. Small D2. DK-3 flow throughout the LAD system. 3. Circumflex: Large caliber vessel. Mid circumflex 30%. High OM1 proximal 100% but fills via left to left collaterals. Large OM 2 without significant CAD. 4. Right coronary artery: The RCA is a large and dominant vessel. Ostial RCA 70 to 80%. Proximal LAD subtotal 99% stenosis followed by 100% occlusion. There are right to right bridging collaterals. PDA and PL branch fills via left to left collaterals. 5. Ramus intermedius: There is a small caliber ramus. Proximal ramus 40 to 50%. Left heart catheterization: 1. Left angiography was not performed. 2. No significant aortic stenosis. Peak to peak gradient across the aortic valve is 0. 3. LVEDP 13 mmHg. PCI mid LAD 04/15/2019: Mid LAD 2.5 x 26 mm trent ANGI. Medications Administered Current Inpatient Medications Acetaminophen (Tylenol) 650 mg PO Q4H PRN PRN Reason: Pain or Fever Stop: 05/14/19 17:07 Aspirin (Ecotrin Ectab) 81 mg PO [facility] Stop: 05/15/19 08:59 Last Admin: 04/16/19 07:33 Dose: 81 mg Documented by: Atorvastatin Calcium (Lipitor) 80 mg PO [facility] Stop: 05/14/19 17:07 Last Admin: 04/16/19 07:33 Dose: 80 mg Documented by: Dextrose (Dextrose 50%) 25 - 50 ml IV UD PRN; Protocol PRN Reason: Hypoglycemia Protocol Stop: 05/14/19 23:44 Enoxaparin Sodium (Lovenox) 40 mg SQ [facility] Stop: 05/16/19 10:14 Last Admin: 04/16/19 11:55 Dose: 40 mg Documented by: Furosemide (Lasix) 40 mg PO [facility] Stop: 05/16/19 08:59 Last Admin: 04/16/19 07:34 Dose: 40 mg Documented by: Glucagon (Glucagen) 1 mg IM UD PRN; Protocol PRN Reason: Hypoglycemia Protocol Stop: 05/14/19 23:44 Glucose (Glucose 40%) 15 - 30 gm PO UD PRN; Protocol PRN Reason: Hypoglycemia Protocol Stop: 05/14/19 23:44 Glucose (Dex4 Glucose) 4 - 8 tabs PO UD PRN; Protocol PRN Reason: Hypoglycemia Protocol Stop: 05/14/19 23:44 Insulin Aspart (Novolog Flexpen) 0 units SC [facility] Stop: 05/15/19 00:00 Last Admin: 04/16/19 11:41 Dose: Not Given Documented by: Lisinopril (Zestril) 10 mg PO QAM [facility] Stop: 05/14/19 17:07 Last Admin: 04/16/19 10:49 Dose: 10 mg Documented by: Metoprolol Tartrate (Lopressor) 25 mg PO BID [facility] Stop: 05/15/19 11:44 Last Admin: 04/16/19 07:32 Dose: 25 mg Documented by: Miscellaneous (Carbohydrates For Hypoglycemia) 15 - 30 gm PO UD PRN PRN Reason: Hypoglycemia Treatment Stop: 05/14/19 23:44 Nitroglycerin (Nitrostat) 0.4 mg SL UD PRN PRN Reason: Chest Pain Stop: 05/14/19 17:07 Ondansetron HCl (Zofran) 4 mg IV Q6H PRN PRN Reason: Nausea Stop: 05/14/19 17:07 Oxycodone/Acetaminophen (Percocet 5mg/325mg) 1 tab PO Q4H PRN PRN Reason: Pain Stop: 04/28/19 17:07 Last Admin: 04/16/19 05:14 Dose: 1 tab Documented by: Polyethylene Glycol (Miralax Powder Packet) 17 gm PO DAILY PRN PRN Reason: Constipation Stop: 05/14/19 17:07 Ticagrelor (Brilinta) 90 mg PO BID [facility] Stop: 05/15/19 20:59 Last Admin: 04/16/19 07:33 Dose: 90 mg Documented by: Tramadol/Acetaminophen (Ultracet) 1 tab PO Q6H PRN PRN Reason: Pain Stop: 05/16/19 10:08 Zolpidem Tartrate (Ambien) 5 mg PO HS PRN PRN Reason: Sleep Stop: 05/14/19 17:07 PG Care Time/CCT Total # of Minutes Spent Total Time Spent with Patient: Total time spent is greater than 50% in coordination of care (as documented) at patient's floor/unit and/or counseling patient:
--- NOTE | 2019-04-16 20:15 | Hospitalist Progress Note ---
Date of Service April 16, 2019 Assessment & Plan (1) Cardiac arrest: No arrhythmia since cardiac cath Off amiodarone Mg > 2 K > 4 (2) Non-ST elevation (NSTEMI) myocardial infarction: LAD ANGI At risk of diabetes as per HbA1C of 5.8 LDL 128 ASA, Brillinta, metoprolol, Lisinopril, atorvastatin (3) Dyslipidemia: High intensity statin (4) Pulmonary edema: Continue lasix 40mg daily as still appears to have some pulmonary edema on exam although suspect this most developed from chest compressions (5) Contusion of face: Face CT without fracture Continue supportive care Bacitracin for the scratches (6) Fracture, ribs: Continue percocet PRN (7) Claudication: Suspected peripheral artery disease Long standing and good walking distance prior to onset F/U cardiology 1-2 weeks Antiplatelets and statin as per CAD (8) DVT prophylaxis: Lovenox 40mg SQ daily Code - full Dispo - observe overnight. Aim home tomorrow if no arryhthmia on telemetry Subjective Feels well today. Ongoing chest pain reproducible on palpation due to rib fractures. No exertional chest pain. No palpitations, PND, orthopnea. Not walking far enough for his right leg claudication. Review of Systems Review of Systems: All systems reviewed & are unremarkable except as noted in HPI & below Physical Exam Constitutional: well developed and + obese; no acute distress Eyes: PERRL, conjunctivae normal, anicteric sclerae ENMT: Nose: + external nose abnormality (facial bruising) Neck: trachea midline Respiratory: normal respiratory effort Auscultation: + diminished lung sounds (bibasal) and + crackles (fine bibasal); no rhonchi Cardiovascular: Rate/Rhythm: regular rate and regular rhythm Heart Sounds: normal S1 and normal S2; no gallop, no murmur and no cardiac rub Vessels: no JVD Extremities: + pedal edema (1+ b/l equal to mid shins) right radial dressing c/d/i Gastrointestinal (Abdomen): normal bowel sounds, soft, nontender, no hepatosplenomegaly Inspection/Auscultation: abdomen not distended Musculoskeletal: no cyanosis or clubbing, extremities motor strength 5/5 Skin: no rashes, warm and dry Neurologic: moves all extremities and awake; no focal motor deficits and not confused Motor/Sensory: no sensory deficit Psychiatric: A+Ox3, euthymic affect Lymphatic: no cervical or axillary lymphadenopathy Results & Data Vital Signs (Past 12 Hours) Vital Signs Temp Pulse Pulse Resp BP BP Pulse Ox 04/16/19 20:01 97.3 F L 80 20 125/77 94 04/16/19 16:00 71 04/16/19 15:46 98.4 F 82 20 137/75 93 04/16/19 11:00 68 12 04/16/19 10:00 71 19 139/65 93 04/16/19 09:01 69 19 137/77 91 04/16/19 09:00 67 16 92 PG Care Time/CCT Total # of Minutes Spent Total Time Spent with Patient: Total time spent is greater than 50% in coord ination of care (as documented) at patient's floor/unit and/or counseling patient: (1) Pulmonary edema Chronicity: acute Qualified Code(s): J81.0 - Acute pulmonary edema (2) Contusion of face Encounter type: initial encounter Qualified Code(s): S00.83XA - Contusion of other part of head, initial encounter (3) Fracture, ribs Encounter type: initial encounter Fracture type: closed Laterality: unspecified laterality Rib fracture type: multiple ribs Qualified Code(s): S22.49XA - Multiple fractures of ribs, unspecified side, initial encounter for closed fracture
[2019-04-17 06:03] LABS: Basophils # (auto) 0.02 K/uL (0-0.2); Basophils % (auto) 0.2 %; Eosinophils # (auto) 0.17 K/uL (0-0.5); Eosinophils % (auto) 1.9 %; Hematocrit (blood only) 38.7 % (42-52); Hemoglobin 13.5 g/dL (14.0-18.0); Immature Granulocytes # (auto) 0.02 K/uL (0.00-0.02); Immature Granulocytes % (auto) 0.2 %; Lymphocytes # (auto) 1.02 K/uL (1.2-3.4); Lymphocytes % (auto) 11.2 %; Mean Corpuscular Hemoglobin 30.7 pg (25-34); Mean Corpuscular Hgb Conc 34.9 g/dL (32-36); Mean Platelet Volume 9.9 fL (7.4-10.4); Monocytes # (auto) 1.02 K/uL (0.11-0.59); Monocytes % (auto) 11.2 %; Neutrophils # (auto) 6.88 K/uL (1.4-6.5); Neutrophils % (auto) 75.3 %; Platelet Count 178 K/uL (130-400); RDW Coefficient of Variation 13.9 % (11.5-14.5); RDW Standard Deviation 45.6 fL (36.4-46.3); White Blood Count 9.13 K/uL (4.8-10.8)
[2019-04-17 06:13] LABS: Partial Thromboplastin Ratio 0.9; Partial Thromboplastin Time 24.4 Seconds (21.0-31.0)
[2019-04-17 06:39] LABS: Albumin Level 3.3 gm/dl (3.4-5.0); BUN Creatinine Ratio 16.1 (10-20); Calcium 8.8 mg/dl (8.5-10.1); Creatinine Clr Calc Pharmacy 78.8 ml/min; Est GFR (African American) 97.1; Est GFR (Non-African American) 83.8; Potassium 3.7 mmol/L (3.5-5.1)
[2019-04-17 06:42] LABS: Albumin Globulin Ratio 1.1 (0.9-2); Bilirubin,Total 1.2 mg/dl (0.2-1); Globulin 3.1 gm/dl (2.5-4.0); Total Protein 6.4 gm/dl (6.4-8.2)
[2019-04-17] MEDS: TICAGRELOR 90 MG TAB PO SCH (08:24)
[2019-04-17] MEDS: INSULIN ASPART 100 UNITS/ML 3 ML PEN SC SCH ×2 (08:24→12:29)
[2019-04-17] MEDS: lisinopriL 10 MG TAB PO SCH (08:24)
[2019-04-17] MEDS: ENOXAPARIN INJ 40 MG/0.4 ML SYR SQ SCH (08:24)
[2019-04-17] MEDS: ATORVASTATIN 40 MG TAB PO SCH (08:25)
[2019-04-17] MEDS: ASPIRIN 81 MG ECTAB PO SCH (08:25)
[2019-04-17] MEDS: METOPROLOL TARTRATE 25 MG TAB PO SCH (08:25)
[2019-04-17] MEDS: FUROSEMIDE 40 MG TAB PO SCH (08:25)
--- NOTE | 2019-04-17 13:45 | XRay Report ---
XR chest 2V routine CLINICAL HISTORY: monitor pulmonary edema COMPARISON STUDY: 04/15/2019 FINDINGS: The heart is enlarged. There is been resolution of the previously described congestive fail ure. There are small bilateral pleural effusions. There is no lobar consolidation. Multiple rib fract ures are evident.[Multiple rib fractures are evident. There are small bilateral pleural effusions. IMPRESSION: 1. Resolution of the previously described congestive failure 2. Small bilateral pleural effusions 3. Rib fractures. No evidence of pneumothorax. Electronically signed by: Davon Sow M.D. 04/17/2019 1:44 PM
--- NOTE | 2019-04-17 14:28 | Discharge Summary ---
Date of Service April 17, 2019 Admission HPI Per Admitting Provider Patient is a 63 years old male without significant past medical history who presented to the emergency room status post cardiac arrest that started 1 hour ago. EMS stated that patient collapsed at the present and it was found face down. According to EMS the patient was given 8-minute of CPR that started in his detention cell. He was given oxygen. He was also given 150 mg of IV amiodarone. Patient has some bleeding in the facial area and dried blood in the nurse. He feels he said that he feels a little congested and on occasion he is short of breath. His initial 12-lead EKG shows a sinus tachycardia at rate of [address] segment depression and T wave inversion in the inferior leads, nonspecific ST segment elevation in lateral leads. No ST segment elevation or ectopy. And he was shocked 4 times by AED. The patient told EMS that he experiencing chest pain that does not radiate anywhere else on his body and it is not relieved by anything specific. CT of the chest is negative for PE. There there is evidence of asymmetric pulmonary edema seen on both CT and chest x-ray. Upon arrival to the emergency room patient was started on [id number] mg drip, given magnesium 2 g IV, given 1 L of normal saline, 40 mg of Lasix IV, given potassium chloride 40 mg p.o. x1. Labs are reviewed: Lactic acid is elevated to 4.4. Troponin is 0.166. WBC 11.33, hemoglobin 15.5, hematocrit 44.6, platelets 193, PT 10.6, INR 1, APTT 23.9, sodium 138, potassium 3.7, BUN 9, creatinine 1.14, GFR 68.1, glucose 149, calcium 9, phosphorus 6, magnesium 2.1, bilirubin 0.4, AST 126, ALT 134, CK-MB 6, TSH 3.15, lipase 201. Admission Exam Per Admitting Provider Constitutional: WD/WN, vitals as above well developed and + obese Eyes: PERRL, conjunctivae normal, anicteric sclerae ENMT: external ear and nose normal, oropharynx normal Neck: trachea midline, no thyromegaly Respiratory: normal respiratory effort Auscultation: + bronchovesicular breath sounds Cardiovascular: Heart Sounds: normal S1 and normal S2 Palpation: + palpable S3 Vessels: + JVD and dorsalis pedis pulses present Extremities: + pedal edema Gastrointestinal (Abdomen): normal bowel sounds, soft, nontender, no hepatosplenomegaly Musculoskeletal: no cyanosis or clubbing, extremities motor strength 5/5 Skin: Some bruises and old blood over patient's face, no deformity. Minimal swelling. Neurologic: patellar DTR's 2+ bilat, sensation intact Psychiatric: A+Ox3, euthymic affect Lymphatic: no cervical or axillary lymphadenopathy Principal Diagnosis Cardiac arrest Heart attack - non ST elevation myocardiac infarction (NSTEMI) Pulmonary edema Rib fractures Facial contusions Chronic right leg claudication Discharge Exam Constitutional WD/WN, vitals as above + obese; no acute distress Eyes PERRL, conjunctivae normal, anicteric sclerae ENMT external ear and nose normal, oropharynx normal Nose: + external nose abnormality (facial bruising) Neck trachea midline, no thyromegaly trachea midline Respiratory normal respiratory effort Auscultation: + diminished lung sounds (bibasal); no crackles and no rhonchi Cardiovascular Rate/Rhythm: regular rate and regular rhythm Heart Sounds: normal S1 and normal S2; no gallop, no murmur and no cardiac rub Vessels: no JVD Extremities: + pedal edema (trace b/l equal to mid shins) Gastrointestinal (Abdomen) normal bowel sounds, soft, nontender, no hepatosplenomegaly Inspection/Auscultation: abdomen not distended Musculoskeletal no cyanosis or clubbing, extremities motor strength 5/5 Skin no rashes, warm and dry Neurologic moves all extremities and awake; no focal motor deficits and not confused Motor/Sensory: no pronator drift and no sensory deficit Psychiatric A+Ox3, euthymic affect Lymphatic no cervical or axillary lymphadenopathy Discharge Data Allergies Allergy/AdvReac Type Severity Reaction Status Date / Time penicillin V Allergy Unknown Unverified 04/14/19 14:22 Consultations 04/14/19 15:10 ED Decision to Admit Stat 04/14/19 17:08 Consult Cardiology Routine Consult Florist Stat Procedures Performed Operation Date: 04/15/19 13:00 Actual Procedures p Drug Eluting Stent SGl Vessel - Neal Talbert MD s Cineradiography w/Routine Exam - Neal Talbert MD s Cath, Left with Cors and Vent - Lito Claudio MD Ordered Studies 04/14/19 13:28 CT angio chest PE protocol Stat CT cervical spine wo con Stat CT head/brain wo con Stat 04/14/19 13:41 CT facial bones wo con Stat 04/15/19 13:03 CL Cath Imgs for PACS use only Routine Hospital Course (1) Cardiac arrest: Secondary to NSTEMI. No arrhythmia since cardiac cath Off amiodarone Mg > 2 K > 4 (2) Non-ST elevation (NSTEMI) myocardial infarction: LAD ANGI At risk of diabetes as per HbA1C of 5.8 LDL 128 ASA, Brillinta, metoprolol, Lisinopril, atorvastatin Follow up in cardiology clinic (3) Dyslipidemia: High intensity atorvastatin (4) Pulmonary edema: Will reduce lasix down to 20mg PO daily. Further addjustments as needed by cardiology. Suspect not required bed bug exterminator as mostly from chest compressions. (5) Contusion of face: Face CT without fracture Continue supportive care Bacitracin for the scratches (6) Fracture, ribs: Continue percocet PRN (7) Claudication: Suspected peripheral artery disease Long standing and good walking distance prior to onset F/U cardiology 1-2 weeks Antiplatelets and statin as per CAD Total Time Total Time Spent Total Time Spent (In Minutes): 45 Total Time Includes: Examination of the Patient, Discharge Planning, Medication Reconciliation and Communication With Other Providers (Retirement physician) Discharge Plan Discharge Items [facility] Disposition: [facility] Reason For Visit: CARDIAC ARREST Discharge Diagnosis: Cardiac arrest Heart attack - non ST elevation myocardiac infarction (NSTEMI) Pulmonary edema Rib fractures Facial contusions Chronic right leg claudication Condition on Discharge: Good Activity: Per Instructions section Non-emergency contact: Primary Care Provider and Opener Tender Call non-emergency contact if: you have any medication questions, your symptoms worsen and you have a fever Follow-up/Referrals: Lito Claudio MD [Physician] - (1-2 weeks) Temo SINGER [Primary Care Provider] - Diet: Heart Healthy Addtl Attending Provider Instructions: You were diagnosed with a cardiac arrest with return to normal sinus rhythm from external defibrillation. No neurological abnormalities noted post resuscitation. This was due to an arrhythmia caused by heart attack (NSTEMI). No further a rrhythmias after admission were observed. You underwent cardiac catheterization that showed severe coronary artery disease and treated with a drug eluting stent to mid LAD (left anterior descending) artery. You were started on antiplatelets - aspirin and Brillinta which you should take both for at least 1 year and the aspirin indefinitely. You were also started on medication to help with heart rem odelling and blood pressure (metoprolol and lisinopril). You were also started on atorvastatin for elevated cholesterol and plaque stabilization. You will be continued on a low dose of lasix (water pill) for mild pulmonary edema and pleural effusions (fluid on your lungs). For the rib fractures recommend acetaminophen for mild pain and percocet for moderate to severe pain. Please follow up with cardiology in the next 1-2 weeks. Appointment to be arranged. ACTIVITY RECOMMENDATIONS: Excess manipulation of the wrist should be avoided for the next 24-48 hours. * No lifting over 2 pounds (approximately a 1/2 gallon of milk) with the utilized arm for 24 hours. * No strenuous activity such as bowling or tennis for 3 days. * Keep the site of the procedure covered with a bandage for 24 hours. *You may shower the day after the procedure. Do not take a tub bath or submerge the puncture site in water for the next 3 days. *Do not operate any motorized equipment for 3 days. SPECIAL CARE INSTRUCTIONS: The site may be slightly bruised and sore following your procedure. Should any of the following occur, contact the Dr. who performed your procedure. 1. Redness/inflammation, swelling, chills, or fever, or colored drainage at procedure site within 3-7 days after your procedure. 2. Coldness, discoloration, ongoing numbness, severe pain, or swelling. Expect mild tingling of hand and tenderness at the puncture site for up to three days. If this persists beyond three days, or other symptoms develop, notify the Dr. who performed your procedure. BLEEDING: If the procedure site on your wrist begins to bleed, do not panic 1. Place 1 or 2 fingers firmly just slightly above the insertion site to stop the bleeding. You may be able to feel your pulse as you hold pressure. 2. Lift your finger after 5 minutes to see if the bleeding has stopped. 3. Once the bleeding has stopped, gently wipe the wrist area clean with a bandage. * If the bleeding from your wrist does not stop after 10 minutes, or if there is a large amount of bleeding or spurting, call 911 (do not drive yourself to the hospital). SKIN IRRITATION: * You may experience some redness and/or swelling in the area where radiation was administered. If any skin irritation occurs, please contact your family physician. FOLLOW UP VISIT: Keep any scheduled doctor appointments. Pending Studies at Discharge: No Stand-Alone Forms: My [facility] Skilled Items Patient informed of condition?: Yes Discharge Level of Care: Other Communicable Disease: No Discharge Prognosis: Stable Lines: None Urinary Catheter: No Medications and DC Order Prescriptions: New atorvastatin 40 mg Tablet 80 mg PO QAM Qty: 30 RF: 0 acetaminophen [Mapap (acetaminophen)] 325 mg Tablet 650 mg PO Q4H PRN (Reason: pain, mild) Qty: 30 RF: 0 aspirin [Ecotrin Low Strength] 81 mg Tablet,Delayed Release (Dr/Ec) 81 mg PO QAM Qty: 30 RF: 0 oxycodone-acetaminophen [Percocet] 5-325 mg Tablet 1 tab PO Q6H PRN (Reason: pain, moderate) Qty: 20 RF: 0 lisinopril 10 mg Tablet 10 mg PO QAM Qty: 30 RF: 0 nitroglycerin [Nitrostat] 0.4 mg Tablet, Sublingual 0.4 mg sublingual UD PRN (Reason: chest pain) Qty: 10 RF: 0 metoprolol tartrate 25 mg Tablet 25 mg PO BID Qty: 60 RF: 0 Brilinta 90 mg Tablet 90 mg PO BID Qty: 60 RF: 0 furosemide [Lasix] 20 mg tablet 20 mg PO DAILY Qty: 30 RF: 0 No Action No Known Home Medications RF: 0 Discharge Orders: Discharge Order (Routine); Ordered 04/17/19 Ordered By: Sam Crisostomo/Other Patient Handouts: Angina Heart Attack Recognize, Heart Attack Exercise After, Heart Attack Living Well After Admission Data Admit Date/Time: 04/14/19 16:06 Attending Provider: Sam Gill Admit Provider: Sushil Gorman Primary Care Provider: Temo SINGER Other Providers: Sushil Gorman ; Maria Ritter ; Seymour Turner Other Interventions: Discharge Summary Assessment (RN) Last Done: 04/17/19 14:16 DC Date/Time DO NOT enter until pt leaves facility: 04/17/19 16:02
== END 2019-04-17 16:02 | DRG 246 ==
LOC: ED 13:22 → SUATTDRO 16:06 → 1E 16:06 → 2N 04-16 11:38